=== PATIENT | female | born 1995 | race Caucasian/White ===

== ENCOUNTER → 2020-04-19 09:02 | Outpatient (CLI) | payer MEDICAID, SELFPAY ==
[2020-04-19 13:23] LABS: Basophils % 0.4 % (0.1-2.0); Eosinophils # 0.3 K/mm3 (0.0-0.4); Eosinophils % 3.2 % (0.1-12.0); Hematocrit 38.9 % (37.0-47.0); Hemoglobin 13.3 g/dL (12.2-16.2); Lymphocytes # 3.2 K/mm3 (0.7-4.5); Lymphocytes % 31.9 % (10-50); Mean Corpuscular HGB Conc 34.1 g/dL (31.8-35.4); Mean Platelet Volume 8.3 fl (7.4-10.4); Monocytes # 0.6 K/mm3 (0.1-1.0); Monocytes % 5.6 % (1.7-9.3); Neutrophils # 5.9 K/mm3 (1.8-7.8); Neutrophils % 58.8 % (37.0-80.0); Platelet Count 321 K/mm3 (142-424); Red Blood Count 4.42 M/mm3 (4.20-5.40); Red Cell Distribution Width 13.5 % (11.5-17.5)
[2020-04-20 11:05] LABS: HIV Screen 4th Generation wRfx Non Reactive (Non Reactive)
[2020-04-20 11:39] LABS: Hepatitis B Surface Antigen Negative (Negative); Hepatitis C Antibody 0.1 s/co ratio (0.0-0.9); Rapid Plasma Reagin Ab Titer Non Reactive (NonRea<1:1); Rubella Antibodies, IgG 2.87 index (Immune >0.99)
== END ==
PROVIDERS: Visit Provider Nurse Practitioner Obstetrics & Gynecology
DX: Z34.90 Encounter for supervision of normal pregnancy, unspecified, unspecified trimester (principal); Z3A.08 8 weeks gestation of pregnancy
CPT/HCPCS: 36415; 85025; 86592; 86703; 86762; 86850; 87340; 87380; G0432

== ENCOUNTER → 2020-04-22 12:52 | Outpatient (CLI) | payer MEDICAID, SELFPAY ==
--- NOTE | 2020-04-22 12:52 | US_ITS ---
PROCEDURE: US OB TRANSVAGINAL CLINICAL INDICATION: for dates Ob ultrasound for dates, early OB COMPARISON: No exams were available for comparison FINDINGS: There is an intrauterine gestational sac with a yolk sac noted. pole however is not identified with certainty. Cannot confirm viability at this. Suggest follow-up ultrasound. No adnexal mass. No cul-de-sac fluid. IMPRESSION: Intrauterine gestational sac apparent. No pole evident at this therefore cannot confirm viability. Follow-up is suggested. Dictated by: Jaron Borges MD 04/22/2020 16:29 Electronically signed by Jaron Borges MD in [place] 04/22/2020 16:29
== END ==
PROVIDERS: PCP Nurse Practitioner Obstetrics & Gynecology; Visit Provider Nurse Practitioner Obstetrics & Gynecology
DX: Z34.90 Encounter for supervision of normal pregnancy, unspecified, unspecified trimester (principal)
CPT/HCPCS: 76817

== ENCOUNTER → 2020-04-29 09:54 | Outpatient (CLI) | payer MEDICAID, SELFPAY ==
--- NOTE | 2020-04-29 10:16 | US_ITS ---
PROCEDURE: US OB TRANSVAGINAL CLINICAL INDICATION: dates for early COMPARISON: US OB TRANSVAGINAL from 04/22/2020 FINDINGS: An intrauterine gestational sac is present with a pole with a crown-rump length of 0.64cm correlating to gestational age of 6weeks 4days. heart tones are present with an FHR of 120bpm. Yolk sac is noted. IMPRESSION: Live intrauterine gestation at 6 weeks 4 days Estimated due date by Ultrasound is 12/19/2020 Dictated by: Jaron Borges MD 04/29/2020 18:36 Electronically signed by Jaron Borges MD in [place] 04/29/2020 18:36
== END ==
PROVIDERS: PCP Nurse Practitioner Obstetrics & Gynecology; Visit Provider Nurse Practitioner Obstetrics & Gynecology
DX: Z34.90 Encounter for supervision of normal pregnancy, unspecified, unspecified trimester (principal)
CPT/HCPCS: 76817

== ENCOUNTER → 2020-06-14 15:27 | Outpatient (CLI) | payer MEDICAID, SELFPAY ==
[2020-06-14 17:36] LABS: Coronavirus 19 IgG Antibody Negative (Negative); Coronavirus 19 IgM Antibody Negative (Negative)
== END ==
PROVIDERS: Visit Provider Nurse Practitioner Obstetrics & Gynecology
DX: Z01.84 Encounter for antibody response examination (principal)
CPT/HCPCS: 36415; 86328

== ENCOUNTER → 2020-08-01 13:02 | Outpatient (CLI) | payer MEDICAID, SELFPAY ==
--- NOTE | 2020-08-01 13:02 | US_ITS ---
PROCEDURE: US OB /MATERNAL DETAIL CLINICAL INDICATION: 20 week gestation anatomy scan---- COMPARISON: US US OB TRANSVAGINAL from 04/29/2020 FINDINGS: There is a single live fetus which is in cephalic presentation. heart and body motion noted. Placenta is anterior in implantation and grade 1. The cervix is closed and measures 3 cm in length. Complete survey performed and was unremarkable on the submitted images as in PACS. No discrete anomalies identified on survey imaging by technologist. Active fetus. Three-vessel cord with satisfactory umbilical cord insertion. 4- chamber heart noted. Survey of brain & ventricles Unremarkable. Face and neck survey unremarkable. Diaphragm and chest views unremarkable. Abdomen: Both kidneys noted and unremarkable. Stomach noted and satisfactory. Spine: Survey of the spine satisfactory with no anomalies identified nor imaged. Both arms and legs noted. Amniotic Fluid: Adequate. Maternal adnexa: No significant findings. Measurements: Average ultrasound age 20weeks 4days. Gestational Age 20 weeks Estimated due date by ultrasound age 0212/15/2020. Estimated weight 343g BPD = 21weeks 1day OFD = 21weeks HC = 20weeks 2days AC = 20weeks 4days FL = 20weeks Growth Percentile= 62Percent% Heart Rate = 138bpm Cerebellum = 20weeks 6days Humerus = 20weeks HC/AC is 1.15 CI is 0.8 FL/BPD is 0.64 FL/AC is 0.21 IMPRESSION: Live IUP with an average ultrasound age of 20 weeks and 4 days. All parameters correlate with no obvious anomalies. Please see above for detail. Dictated by: Jaron Borges MD 08/02/2020 11:21 Jaron Borges MD in [place] 08/02/2020 11:21
== END ==
PROVIDERS: PCP Nurse Practitioner Obstetrics & Gynecology; Visit Provider Nurse Practitioner Obstetrics & Gynecology
DX: Z3A.20 20 weeks gestation of pregnancy (principal); Z34.90 Encounter for supervision of normal pregnancy, unspecified, unspecified trimester
CPT/HCPCS: 76811

== ENCOUNTER 2020-08-19 08:57 | Emergency (ER) | payer MEDICAID, SELFPAY ==
[2020-08-19 09:23] VITALS: BP 136/89; PULSE 84; RESP 19; TEMP 36.6; O2SAT 97; BMI 45.4
--- NOTE | 2020-08-19 09:27 | HMH.EDUTC ---
[facility] [place] Clinical Impression: Viral syndrome Sinusitis Qualifiers: Sinusitis location: unspecified location Chronicity: acute Recurrence: non-recurrent Qualified Code(s): J01.90 - Acute sinusitis, unspecified Qualifiers: Weeks of gestation: 21 weeks Qualified Code(s): Z3A.21 - 21 weeks gestation of Disposition: Home, Self-Care Condition on Discharge: Good Instructions: Sinusitis, DI for Sinusitis Additional Instructions: Drink plenty of fluids. Take tylenol or ibuprofen for pain or fever. Take the medications as directed. Follow up with your regular doctor. Let your ob doctor know that you are sick. GO TO THE ER FOR ANY WORSENING SYMPTOMS Prescriptions: Azithromycin [Z-Tereso 250mg Tab*] 250 mg PO UD DOSE PK #6 tab Transmission Status: Received by [id number] Referrals: PCP,No [Primary Care Provider] - Forms: Work/School Release Time of Disposition: 09:46 Medical Decision Making - Medical Records Medical records reviewed: No: I reviewed the patient's medical records. - Javi Inquiry Pt receiving controlled substance: No Vital Signs: 08/19/20 09:23 08/19/20 10:07 Temperature 97.8 F 97.8 F Temperature Source Oral Oral Pulse Rate 84 Pulse Rate [Radial] 84 Respiratory Rate 19 19 Blood Pressure 136/89 Blood Pressure [Right Arm] 136/89 Blood Pressure Mean [Right Arm] 104 Blood Pressure Source Automatic Cuff Blood Pressure Source [Right Arm] Automatic Cuff Blood Pressure Position Sitting Blood Pressure Position [Right Arm] Sitting 02 Sat by Pulse Oximetry 97 Oxygen Delivery Method Room Air Room Air - Lab Data Lab results reviewed: Yes: I reviewed the patient's lab results. Lab Results 08/19/20 09:21: Influenza Type A Ag Negative, Influenza Type B Ag Negative Orders (Tests/Meds): ORDERS Category Date Time Status Covid-19 Nasal PCR ([facility]) Routine Lab 08/19/20 09:40 Ordered [facility] [place] H[place] - General Stated complaint: headache, fever, congested Time Seen by Provider: 08/19/20 09:27 Mode of Arrival: Ambulatory Source of Information: Patient Limitations: No Limitations Description of Symptoms (Recalled from Triage Doc. by RN): headache, runny nose, vomiting, coughing x 2 days HEENT Symptoms (Recalled from RN notes): Yes Resp Symptoms (Recalled from RN notes): No Skin Symptoms (Recalled from RN notes): No MS Symptoms (Recalled from RN notes): No Functional Status (Recalled from RN notes): wnl - History of Present Illness Provider Complaint: She states that for the past 2 days she has had a runny nose, sore throat, mild cough and head ache. - Related Data Previous Rx's Medication Instructions Recorded PNV 153-FA 400 mcg-om3 35 mg-dha 1 tab PO DAILY #30 tab 04/19/20 25 mg-epa 5 mg-fish oil chew tablet albuterol sulfate 90 mcg/actuation 2 puff INHALATION Q4-6H PRN #8.5 g 06/14/20 aerosol inhaler ferrous sulfate 325 mg (65 mg 325 mg PO DAILY #30 tab 08/10/20 iron) tablet Azithromycin [Z-Tereso 250mg Tab*] 250 mg PO UD DOSE PK #6 tab 08/19/20 Allergies Allergy/AdvReac Type Severity Reaction Status Date / Time Sulfa (Sulfonamide Allergy Severe Anaphylaxis Verified 08/10/20 13:58 Antibiotics) - Worker's Comp Is this a Worker's Comp case?: No [facility] History - Hepatitis A Screen Drug use history?: No High risk sexual behaviors?: No History of sexually transmitted infection?: No Currently employed?: No Childcare worker?: No Do you have indoor plumbing?: Yes Do you have electricity?: Yes Attestation statement:: This patient has been screened for Hepatitis A risk factors. I have reviewed the patient's past medical history: Yes Medical History: Reports:: Anxiety, Depression, MRSA, Palpitations Other Medical History: Reports: Other Comment: PTSD, mood disorder, reactive attachment disorder, Fibrocystic breast, Low immune system Other Surgeries: Yes: No Previous Surgery Amputation: No Fractures: No
[2020-08-19 10:07] VITALS: BP 136/89; PULSE 84; RESP 19; TEMP 36.6; O2SAT 97
[2020-08-19 10:26] LABS: UTC Influenza A Antigen Negative (Negative)
[2020-08-19 10:27] LABS: UTC Influenza B Antigen Negative (Negative)
== END 2020-08-19 10:08 | disposition home or self-care (01) ==
PROVIDERS: Emergency Provider Nurse Practitioner Family; Referring Provider Nurse Practitioner Obstetrics & Gynecology
DX: J01.90 Acute sinusitis, unspecified (principal); Z20.828 Contact with and (suspected) exposure to other viral communicable diseases; Z3A.21 21 weeks gestation of pregnancy
CPT/HCPCS: 87804; 99201; U0003

== ENCOUNTER → 2020-09-16 08:26 | Outpatient (CLI) | payer MEDICAID, SELFPAY ==
[2020-09-16 09:32] LABS: Glucose,Fasting 87 mg/dl (74-100)
[2020-09-16 10:25] LABS: Glucose 1 Hour 121 mg/dL (74-100)
== END ==
PROVIDERS: Visit Provider Nurse Practitioner Obstetrics & Gynecology
DX: Z34.90 Encounter for supervision of normal pregnancy, unspecified, unspecified trimester (principal)
CPT/HCPCS: 36415; 82951

== ENCOUNTER 2020-09-18 22:50 | Outpatient (CLI) | payer MEDICAID, SELFPAY ==
[2020-09-18 23:20] VITALS: BP 136/77; PULSE 80; RESP 20; TEMP 36.7; O2SAT 98; BMI 47.8
[2020-09-18 23:43] VITALS: BMI 47.8
[2020-09-18 23:58] LABS: Microscopic, Urine URINE MICROSCOPIC (MICROSCOPIC)
[2020-09-19 00:01] LABS: Appearance,Urine SL CLOUDY (Clear); Bilirubin,Urine Negative (Negative); Blood, Urine Negative (Negative); Color,Urine YELLOW (Yellow); Glucose,Urine (UA) Negative (Negative); Ketones,Urine Negative (Negative); Leukocyte Esterase,Urine Negative (Negative); Nitrate,Urine Negative (Negative); Protein,Urine Negative (Negative); Specific Gravity, Urine 1.025 (1.005-1.030); Urobilinogen,Urine 0.2 EU/dl (0.2)
[2020-09-19 00:12] LABS: Amphetamine/Metha Screen,Urine Negative ng/ml (<1000)
[2020-09-19 00:13] LABS: Barbiturates Screen,Urine Negative ng/ml (<200)
[2020-09-19 00:14] LABS: Benzodiazepines Screen,Urine Negative ng/ml (<200); Cannabinoid Screen,Urine Negative ng/ml (<50)
[2020-09-19 00:15] LABS: Cocaine Screen,Urine Negative ng/ml (<300)
[2020-09-19 00:16] LABS: Methadone Screen,Urine Negative ng/ml (<300); Opiate Screen,Urine Negative ng/ml (<300)
[2020-09-19 00:17] LABS: Phencyclidine Screen,Urine Negative ng/ml (<25)
[2020-09-19 00:28] LABS: Basophils # 0.1 K/mm3 (0-0.2); Basophils % 0.3 % (0.1-2.0); Eosinophils # 0.3 K/mm3 (0.0-0.4); Eosinophils % 1.9 % (0.1-12.0); Hematocrit 32.8 % (37.0-47.0); Hemoglobin 10.7 g/dL (12.2-16.2); Lymphocytes # 3.9 K/mm3 (0.7-4.5); Lymphocytes % 22.2 % (10-50); Mean Corpuscular HGB Conc 32.6 g/dL (31.8-35.4); Mean Corpuscular Volume 88.9 fl (81-99); Mean Platelet Volume 8.4 fl (7.4-10.4); Monocytes # 0.9 K/mm3 (0.1-1.0); Monocytes % 4.8 % (1.7-9.3); Neutrophils # 12.6 K/mm3 (1.8-7.8); Neutrophils % 70.8 % (37.0-80.0); Platelet Count 371 K/mm3 (142-424); Red Blood Count 3.69 M/mm3 (4.20-5.40); Red Cell Distribution Width 13.7 % (11.5-17.5); White Blood Count 17.8 K/mm3 (4.8-10.8)
[2020-09-19 00:31] LABS: Chloride 106 mmol/L (98-107); Sodium 136 mmol/L (136-145)
[2020-09-19 00:32] LABS: MANUAL DIFFERENTIAL MANUAL DIFFERENTIAL (MANUAL DIFF)
[2020-09-19 00:34] LABS: Alanine Aminotransferase 16 U/L (12-78); Albumin Level 3.3 g/dl (3.5-5.0); Albumin/Globulin Ratio 1.1 (1.1-1.8); Alkaline Phosphatase 103 U/L (38-126); Aspartate Amino Transferase 21 U/L (14-36); Bilirubin,Total 0.3 mg/dl (0.2-1.3); Blood Urea Nitrogen 4 mg/dl (7-17); Calcium 9.1 mg/dl (8.4-10.2); Carbon Dioxide 25 mmol/L (22.0-30.0); Creatinine Clearance Estimated 119 mL/min (50-200); Estimated Glomerular Filt Rate 153 ml/min (>60); GFR (African American) 185 ML/MIN (>60); Globulin 2.9 g/dL (1.3-3.2); Glucose 109 mg/dl (74-100); Total Protein,Serum 6.2 g/dl (6.3-8.2)
[2020-09-19 00:48] LABS: Eosinophils % 2 % (0-3); Lymphocytes % 15 % (10-50); Neutrophils % 79 % (42-76); Platelet Estimate Normal; RBC Morphology Normal; Total Cells Counted 100
== END 2020-09-19 01:10 | disposition home or self-care (01) ==
LOC: OBOUT 22:53 → OB 22:53
PROVIDERS: PCP Nurse Practitioner Obstetrics & Gynecology; Visit Provider Obstetrics & Gynecology
DX: O47.03 False labor before 37 completed weeks of gestation, third trimester (principal); Z3A.36 36 weeks gestation of pregnancy
CPT/HCPCS: 59025; 80053; 80305; 81001; 85007; 85025; 96360; 96365; G0463

== ENCOUNTER → 2020-09-28 17:05 | Outpatient (CLI) | payer MEDICAID, SELFPAY ==
[2020-09-28 17:08] LABS: Microscopic, Urine URINE MICROSCOPIC (MICROSCOPIC)
[2020-09-28 18:30] LABS: Appearance,Urine CLOUDY (Clear); Bilirubin,Urine Negative (Negative); Blood, Urine Negative (Negative); Color,Urine YELLOW (Yellow); Glucose,Urine (UA) Negative (Negative); Ketones,Urine Negative (Negative); Leukocyte Esterase,Urine Negative (Negative); Nitrate,Urine Negative (Negative); Protein,Urine Negative (Negative); Urobilinogen,Urine 0.2 EU/dl (0.2)
[2020-09-28 20:22] LABS: Bacteria,Urine 1+ /lpf
== END ==
PROVIDERS: Visit Provider Nurse Practitioner Obstetrics & Gynecology
DX: Z34.90 Encounter for supervision of normal pregnancy, unspecified, unspecified trimester (principal); Z3A.28 28 weeks gestation of pregnancy
CPT/HCPCS: 81001

== ENCOUNTER → 2020-11-09 14:57 | Outpatient (CLI) | payer MEDICAID, SELFPAY ==
[2020-11-09 15:51] LABS: Basophils % 0.2 % (0.1-2.0); Eosinophils # 0.3 K/mm3 (0.0-0.4); Eosinophils % 1.7 % (0.1-12.0); Hemoglobin 10.3 g/dL (12.2-16.2); Lymphocytes # 3.6 K/mm3 (0.7-4.5); Lymphocytes % 20.2 % (10-50); Mean Corpuscular HGB Conc 33.1 g/dL (31.8-35.4); Mean Corpuscular Hemoglobin 27.1 pg (27.0-31.2); Mean Corpuscular Volume 81.9 fl (81-99); Mean Platelet Volume 8.5 fl (7.4-10.4); Monocytes # 0.8 K/mm3 (0.1-1.0); Monocytes % 4.6 % (1.7-9.3); Neutrophils % 73.2 % (37.0-80.0); Platelet Count 434 K/mm3 (142-424); Red Blood Count 3.79 M/mm3 (4.20-5.40); Red Cell Distribution Width 13.3 % (11.5-17.5); White Blood Count 17.8 K/mm3 (4.8-10.8)
[2020-11-09 15:53] LABS: MANUAL DIFFERENTIAL MANUAL DIFFERENTIAL (MANUAL DIFF)
[2020-11-09 16:21] LABS: D-Dimer 0.94 ug/mL (0.0-0.5)
[2020-11-09 16:35] LABS: Activated Partial Thrombo Time 24.5 seconds (23.6-34.0); INR 1.09 (0.9-1.1)
[2020-11-09 16:46] LABS: Hypochromasia 1+; Lymphocytes % 18 % (10-50); Monocytes % 3 % (2-9); Neutrophils % 79 % (42-76); Platelet Estimate Normal; RBC Morphology Normal; Total Cells Counted 100
[2020-11-09 16:49] LABS: Fibrinogen 632 mg/dL (204-500)
[2020-11-09 16:57] LABS: Chloride 103 mmol/L (98-107); Glucose 89 mg/dl (74-100); Sodium 136 mmol/L (136-145); Uric Acid 4.4 mg/dl (2.5-6.2)
[2020-11-09 16:58] LABS: Alanine Aminotransferase 11 U/L (12-78); Aspartate Amino Transferase 21 U/L (14-36); Blood Urea Nitrogen < 2 mg/dl (7-17); Calcium 8.8 mg/dl (8.4-10.2); Carbon Dioxide 25 mmol/L (22.0-30.0); Estimated Glomerular Filt Rate 198 ml/min (>60); GFR (African American) 239 ML/MIN (>60)
== END ==
PROVIDERS: Visit Provider Nurse Practitioner Obstetrics & Gynecology
DX: Z34.90 Encounter for supervision of normal pregnancy, unspecified, unspecified trimester (principal); Z3A.34 34 weeks gestation of pregnancy
CPT/HCPCS: 36415; 80048; 84450; 84460; 84550; 85007; 85025; 85378; 85384; 85610; 85730

== ENCOUNTER → 2020-11-11 16:52 | Outpatient (CLI) | payer MEDICAID, SELFPAY ==
[2020-11-11 18:18] LABS: Collection Time,Urine 24 hours; Total Volume,Urine 1520 mL (600-1600)
[2020-11-11 18:29] LABS: Total Protein 24 Hour,Urine 289 mg/24 hr (40-90)
[2020-11-11 18:32] LABS: Creatinine 24 Hour,Urine 1018 mg/24hr (630-2500); Creatinine,Urine Random 67 mg/dL (Not Estab.)
[2020-11-11 20:03] LABS: Creatinine Clearance Urine 124.1 mL/min (25-115); Patient Height,Urine 59 inches; Patient Weight,Urine 236 lbs
== END ==
PROVIDERS: Visit Provider Nurse Practitioner Obstetrics & Gynecology
DX: Z34.90 Encounter for supervision of normal pregnancy, unspecified, unspecified trimester (principal); Z3A.34 34 weeks gestation of pregnancy
CPT/HCPCS: 36415; 82575; 84155

== ENCOUNTER 2020-11-12 00:21 | Observation (INO) | payer MEDICAID, SELFPAY ==
[2020-11-11 22:54] VITALS: BP 144/89; PULSE 95; RESP 18; TEMP 36.8; O2SAT 98; BMI 47.6
[2020-11-11 22:59] LABS: Microscopic, Urine URINE MICROSCOPIC (MICROSCOPIC)
[2020-11-11 23:13] LABS: Amphetamine/Metha Screen,Urine Negative ng/ml (<1000)
[2020-11-11 23:14] LABS: Barbiturates Screen,Urine Negative ng/ml (<200); Benzodiazepines Screen,Urine Negative ng/ml (<200)
[2020-11-11 23:15] VITALS: BP 156/96
[2020-11-11 23:15] LABS: Cannabinoid Screen,Urine Negative ng/ml (<50)
[2020-11-11 23:16] LABS: Cocaine Screen,Urine Negative ng/ml (<300); Methadone Screen,Urine Negative ng/ml (<300)
[2020-11-11 23:17] LABS: Opiate Screen,Urine Negative ng/ml (<300); Phencyclidine Screen,Urine Negative ng/ml (<25)
[2020-11-11 23:18] LABS: Appearance,Urine SL CLOUDY (Clear); Blood, Urine Negative (Negative); Color,Urine YELLOW (Yellow); Glucose,Urine (UA) Negative (Negative); Ketones,Urine Negative (Negative); Leukocyte Esterase,Urine TRACE (Negative); Nitrate,Urine Negative (Negative); Protein,Urine TRACE (Negative); Specific Gravity, Urine 1.015 (1.005-1.030); Urobilinogen,Urine 0.2 EU/dl (0.2)
[2020-11-11 23:25] LABS: Bilirubin,Urine 1+ (Negative)
[2020-11-11 23:26] LABS: Amorphous Sediment,Urine Trace /lpf; Mucus,Urine Trace /lpf; Squamous Epithelial Cell,Urine 20-50 #/hpf (0-5)
[2020-11-11 23:39] VITALS: BP 148/91
[2020-11-12] VITALS: BP 138/95
[2020-11-12 00:15] VITALS: BP 134/74
[2020-11-12 01:23] LABS: Basophils % 0.2 % (0.1-2.0); Eosinophils # 0.3 K/mm3 (0.0-0.4); Eosinophils % 1.7 % (0.1-12.0); Hematocrit 30.4 % (37.0-47.0); Lymphocytes # 3.7 K/mm3 (0.7-4.5); Lymphocytes % 23.2 % (10-50); Mean Corpuscular HGB Conc 32.9 g/dL (31.8-35.4); Mean Corpuscular Hemoglobin 26.7 pg (27.0-31.2); Mean Corpuscular Volume 81.2 fl (81-99); Mean Platelet Volume 8.6 fl (7.4-10.4); Monocytes # 0.7 K/mm3 (0.1-1.0); Monocytes % 4.4 % (1.7-9.3); Neutrophils # 11.3 K/mm3 (1.8-7.8); Neutrophils % 70.5 % (37.0-80.0); Platelet Count 476 K/mm3 (142-424); Red Blood Count 3.75 M/mm3 (4.20-5.40); Red Cell Distribution Width 13.5 % (11.5-17.5)
[2020-11-12 01:29] LABS: MANUAL DIFFERENTIAL MANUAL DIFFERENTIAL (MANUAL DIFF)
[2020-11-12 01:40] LABS: Activated Partial Thrombo Time 25.4 seconds (23.6-34.0); Fibrinogen 418 mg/dL (204-500); INR 1.08 (0.9-1.1); Prothrombin Time 11.9 seconds (9.4-11.8)
[2020-11-12 01:43] LABS: Anion Gap 8.7 mEq/L (5-15); Blood Urea Nitrogen 2 mg/dl (7-17); Carbon Dioxide 27 mmol/L (22.0-30.0); Chloride 104 mmol/L (98-107); Potassium 2.7 mmoL/L (3.5-5.1); Sodium 137 mmol/L (136-145)
[2020-11-12 01:44] LABS: Alanine Aminotransferase 12 U/L (12-78); Aspartate Amino Transferase 20 U/L (14-36); Calcium 9.1 mg/dl (8.4-10.2); Creatinine Clearance Estimated 119 mL/min (50-200); Estimated Glomerular Filt Rate 153 ml/min (>60); GFR (African American) 185 ML/MIN (>60); Glucose 117 mg/dl (74-100)
[2020-11-12 01:47] LABS: Coronavirus 19 IgG Antibody Negative (Negative); Coronavirus 19 IgM Antibody Negative (Negative)
[2020-11-12 01:50] LABS: Lymphocytes % 22 % (10-50); Neutrophils % 72 % (42-76); Total Cells Counted 100
[2020-11-12 01:51] LABS: Platelet Estimate Normal; RBC Morphology Normal
[2020-11-12 01:59] LABS: D-Dimer 0.84 ug/mL (0.0-0.5)
[2020-11-12 03:57] VITALS: BP 127/95; PULSE 84; RESP 18; TEMP 36.6; O2SAT 98
--- NOTE | 2020-11-12 08:52 | HMH.OBAPHP ---
OB - H&P: HPI Antepartum - History of Present Illness Chief complaint: Headache, increased blood pressure History of present illness: She is a 25-year-old 1 para 0 at 34 weeks gestational age. She was seen in my office a few days ago with slightly increased blood pressure. We did a 24-hour urine which showed 285 mg of protein in her urine. All of her blood work was normal. She was at home and had a slight headache and came into labor and delivery. Her blood pressure was in the 140s over 90s range. Blood work was all normal except that she was hypokalemic. Her potassium was low. She does admit to having had some diarrhea recently. - History of Present Criteria for establishing EDC:: LMP confirmed by 1st trimester US care: good care Ultrasounds: normal 1st trimester US, normal mid trimester US Obstetrical complications: gestational hypertension Medical complications: none H History I have reviewed the patient's past medical history: Yes Medical History: Reports:: Anxiety, Depression, MRSA, Palpitations *Have you ever received a pneumonia vaccine?: No *Have you received a flu vaccine this season?: No Other Medical History: Reports: Other Other Surgeries: Yes: No Previous Surgery. No: Amputation: No Fractures: No - *Social History Smoking Status: Current every day smoker Tobacco Type: cigarettes # Packs/Day (cigarettes): 1 Alcohol Intake: never Alcohol Intake Frequency:: other Substance Use Type: marijuana *Occupational Status:: employed *Travel in the last 8 weeks: None - Psychiatric History Pschychiatric History:: Reports:: Anxiety, Depression Family Hx:: No significant family history [employer] history: Spontaneous Para: 0 Review of Systems - Review of Systems Review of systems:: pertinent systems reviewed and negative unless documented below Meds Home Medications Medication Instructions Recorded Confirmed Type albuterol sulfate 90 mcg/actuation 2 puff INHALATION Q4-6H PRN #8.5 g 06/14/20 11/12/20 Rx aerosol inhaler Famotidine [Acid Education Research Analyst] 20 mg PO DAILY 11/12/20 11/12/20 History Pnv No.153/FA/Om3/Dha/Epa/Fish 1 tab PO DAILY 11/12/20 11/12/20 History [ Gummies] Allergies Allergy/AdvReac Type Severity Reaction Status Date / Time Sulfa (Sulfonamide Allergy Severe Anaphylaxis Verified 11/09/20 14:15 Antibiotics) OB - H&P: Exam - Physical Exam Vital signs: Temp Pulse Resp BP Pulse Ox 97.9 F 84 18 127/95 H 98 11/12/20 03:57 11/12/20 03:57 11/12/20 03:57 11/12/20 03:57 11/12/20 03:57 - Constitutional no acute distress - Routine HEENT Exam Head: Present: normocephalic Eye: Present: EOMI, PERRL ENT: Present: mucous membranes moist - Routine Neck Exam Present: supple, full ROM - Routine Respiratory Exam Absent: accessory muscle use (good air entry bilaterally), respiratory distress, wheezes, crackles - Routine Cardiovascular Exam Present: RRR. Absent: murmur - Routine Abdominal Exam Present: soft, normoactive bowel sounds. Absent: tenderness, distended, guarding - Routine Rectal Exam Patient deferred: visual exam, digital exam - Routine Exam Patient deferred: external exam, groin exam, perineal exam - Routine Extremities Exam Present: full ROM. Absent: cyanosis, edema - Routine Skin Exam Present: intact. Absent: cyanosis - Routine Neurological Exam Present: alert, oriented X3 - Routine Psychiatric Exam Present: normal affect OB - Results - Labs Labs: Short CBC 11/12/20 Range/Units 00:55 WBC 16.0 H (4.8-10.8) K/mm3 Hgb 10.0 L (12.2-16.2) g/dL Hct 30.4 L (37.0-47.0) % Plt Count 476 H (142-424) K/mm3 BMP 11/12/20 00:55 Sodium 137 Potassium 2.7 L* Chloride 104 Carbon Dioxide 27 BUN 2 L Creatinine 0.50 L Glucose 117 H Calcium 9.1 Liver Function 11/12/20 Range/Units 00:55 AST 20 (14-36) U/L ALT 12 (12-78) U/L
--- NOTE | 2020-11-12 08:54 | HMH.OBDCSM ---
General - General Admission date:: 11/12/20 Discharge date: 11/12/20 HPI - History of Present Illness History of present illness: She is a 25-year-old 1 now para 0 at 34 weeks gestational age. She came in with headache and slightly increased blood pressure. Her blood pressure is in the 140s over 90s. She also had hypokalemia when we checked her blood work. Hospital Course Hospital Course: She was started on oral labetalol 200 mg twice daily and her blood pressure has normalized. Her headache has resolved. Her blood pressure this morning is 129/66. Reflexes are normal. All of her blood work was normal. She was hypokalemic and did receive IV as well as oral potassium overnight. She will be discharged home since she has stabilized and follow-up with me in approximately 48 hours time. She will receive steroids this morning for lung maturity and will return again tomorrow for a repeat dose. She will also have her blood pressure checked again tomorrow as well as an NST. She will continue with oral potassium replacement. She was given the usual instructions with respect to limiting her activity. She will remain mostly on bedrest. She will monitor her blood pressure at home. She will continue with her labetalol at home. She was given the signs of increasing blood pressure which for her is mild headache. Her condition on discharge is stable and improved. Objective Vital signs: Temp Pulse Resp BP Pulse Ox 97.9 F 84 18 127/95 H 98 11/12/20 03:57 11/12/20 03:57 11/12/20 03:57 11/12/20 03:57 11/12/20 03:57 no acute distress - *Routine HEENT Exam Head: Present: normocephalic Eye: Present: EOMI, PERRL ENT: Present: mucous membranes moist - *Routine Neurological Exam Present: alert, oriented X3, normal speech Reflexes are normal Results Labs on day of discharge: Labs from last 24 hours 11/12/20 11/12/20 11/12/20 00:55 00:55 00:55 WBC RBC Hgb Hct MCV MCH MCHC RDW Plt Count MPV Neut % (Auto) Lymph % (Auto) [place] % (Auto) Eos % (Auto) Baso % (Auto) Neut # (Auto) Lymph # (Auto) [place] # (Auto) Eos # (Auto) Baso # (Auto) Total Counted Neutrophils % (Manual) Band Neutrophils % Lymphocytes % (Manual) Platelet Estimate RBC Morphology PT 11.9 H INR 1.08 APTT 25.4 Fibrinogen 418 D-Dimer 0.84 H Sodium 137 Potassium 2.7 L* Chloride 104 Carbon Dioxide 27 Anion Gap 8.7 BUN 2 L Creatinine 0.50 L Estimated Creat Clear 119 Estimated GFR 153 Est GFR ( Amer) 185 D Glucose 117 H Uric Acid 5.0 Calcium 9.1 AST 20 ALT 12 Urine Color Urine Appearance Urine pH Ur Specific [place] Urine Protein Urine Glucose (UA) Urine Ketones Urine Blood Urine Nitrate Urine Bilirubin Urine Urobilinogen Ur Leukocyte Esterase Urine WBC Ur Squamous Epith Cells Amorphous Sediment Urine Mucus Urine Opiates Screen Urine Methadone Screen Ur Barbituates Screen Ur Phencyclidine Scrn Ur Amphetamines Screen U Benzodiazepines Scrn Urine Cocaine Screen U Marijuana (THC) Screen SARS-CoV-2 IgG Ab (Rapid) Negative SARS-CoV-2 IgM Ab (Rapid) Negative 11/12/20 11/11/20 11/11/20 00:55 22:46 22:46 WBC 16.0 H RBC 3.75 L Hgb 10.0 L Hct 30.4 L MCV 81.2 MCH 26.7 L MCHC 32.9 RDW 13.5 Plt Count 476 H MPV 8.6 Neut % (Auto) 70.5 Lymph % (Auto) 23.2 [place] % (Auto) 4.4 Eos % (Auto) 1.7 Baso % (Auto) 0.2 Neut # (Auto) 11.3 H Lymph # (Auto) 3.7 [place] # (Auto) 0.7 Eos # (Auto) 0.3 Baso # (Auto) 0.0 Total Counted 100 Neutrophils % (Manual) 72 Band Neutrophils % 6.0 Lymphocytes % (Manual) 22 Platelet Estimate Normal RBC Morphology Normal PT INR APTT Fibrinogen D-Dimer Sodium P
[2020-11-12 11:01] LABS: Potassium 2.9 mmoL/L (3.5-5.1)
== END 2020-11-12 12:02 | disposition home or self-care (01) ==
LOC: OBOUT 00:23 → OB 00:23
PROVIDERS: Admitting Provider Nurse Practitioner Obstetrics & Gynecology; Visit Provider Nurse Practitioner Obstetrics & Gynecology
DX: O14.93 Unspecified pre-eclampsia, third trimester (principal); Z3A.34 34 weeks gestation of pregnancy; E87.6 Hypokalemia; G44.89 Other headache syndrome; O13.3 Gestational [pregnancy-induced] hypertension without significant proteinuria, third trimester
CPT/HCPCS: 59025; 80048; 80305; 81001; 84132; 84450; 84460; 84550; 85007; 85025; 85378; 85384; 85610; 85730; 86328; 96372; G0378; J2405

== ENCOUNTER 2020-11-13 12:03 | Outpatient (CLI) | payer MEDICAID, SELFPAY ==
[2020-11-13 12:19] VITALS: BP 128/80; PULSE 98; RESP 16; TEMP 36.7; O2SAT 95; BMI 47.5
[2020-11-13 12:30] VITALS: BP 111/58
[2020-11-13 12:45] VITALS: BP 115/61
== END 2020-11-13 13:03 | disposition home or self-care (01) ==
LOC: OBOUT 12:04 → OB 12:04
PROVIDERS: Visit Provider Nurse Practitioner Obstetrics & Gynecology
DX: O13.3 Gestational [pregnancy-induced] hypertension without significant proteinuria, third trimester (principal); Z3A.34 34 weeks gestation of pregnancy
CPT/HCPCS: 59025; 96372; G0463

== ENCOUNTER 2020-11-13 23:08 | Observation (INO) | payer MEDICAID, SELFPAY ==
[2020-11-13 21:59] VITALS: BMI 47.6
[2020-11-13 22:34] VITALS: BP 141/91; PULSE 100; RESP 20; TEMP 36.6; O2SAT 97; BMI 47.6
[2020-11-13 22:36] LABS: Microscopic, Urine URINE MICROSCOPIC (MICROSCOPIC)
[2020-11-13 22:37] LABS: Appearance,Urine CLEAR (Clear); Bilirubin,Urine Negative (Negative); Blood, Urine Negative (Negative); Color,Urine YELLOW (Yellow); Glucose,Urine (UA) Negative (Negative); Ketones,Urine Negative (Negative); Leukocyte Esterase,Urine Negative (Negative); Nitrate,Urine Negative (Negative); PH,Urine 7.5 (5.0-8.5); Protein,Urine Negative (Negative); Urobilinogen,Urine 0.2 EU/dl (0.2)
[2020-11-13 22:41] LABS: Amorphous Sediment,Urine Trace /lpf
[2020-11-13 22:51] LABS: Barbiturates Screen,Urine Negative ng/ml (<200); Benzodiazepines Screen,Urine Negative ng/ml (<200)
[2020-11-13 22:52] LABS: Amphetamine/Metha Screen,Urine Negative ng/ml (<1000)
[2020-11-13 22:53] LABS: Cannabinoid Screen,Urine Negative ng/ml (<50); Cocaine Screen,Urine Negative ng/ml (<300)
[2020-11-13 22:54] LABS: Methadone Screen,Urine Negative ng/ml (<300)
[2020-11-13 22:55] LABS: Opiate Screen,Urine Negative ng/ml (<300); Phencyclidine Screen,Urine Negative ng/ml (<25)
[2020-11-14 00:16] LABS: Magnesium 1.5 mg/dl (1.6-2.3)
[2020-11-14 03:51] VITALS: BP 133/73; PULSE 91; RESP 18; TEMP 36.6; O2SAT 99
[2020-11-14 04:21] LABS: Fetal Membrane Rupture (Rapid) Negative (Negative)
[2020-11-14 07:20] LABS: Basophils % 0.1 % (0.1-2.0); Eosinophils % 0.1 % (0.1-12.0); Hematocrit 28.7 % (37.0-47.0); Hemoglobin 9.5 g/dL (12.2-16.2); Lymphocytes # 2.7 K/mm3 (0.7-4.5); Lymphocytes % 14.5 % (10-50); Mean Corpuscular HGB Conc 33.3 g/dL (31.8-35.4); Mean Corpuscular Hemoglobin 27.3 pg (27.0-31.2); Mean Corpuscular Volume 82.1 fl (81-99); Mean Platelet Volume 8.5 fl (7.4-10.4); Monocytes # 0.9 K/mm3 (0.1-1.0); Monocytes % 4.8 % (1.7-9.3); Neutrophils % 80.5 % (37.0-80.0); Platelet Count 441 K/mm3 (142-424); Red Blood Count 3.49 M/mm3 (4.20-5.40); Red Cell Distribution Width 13.5 % (11.5-17.5); White Blood Count 18.7 K/mm3 (4.8-10.8)
[2020-11-14 07:27] LABS: D-Dimer 1.04 ug/mL (0.0-0.5)
[2020-11-14 07:50] LABS: MANUAL DIFFERENTIAL MANUAL DIFFERENTIAL (MANUAL DIFF)
--- NOTE | 2020-11-14 07:51 | HMH.OBAPHP ---
OB - H&P: HPI Antepartum - History of Present Illness Chief complaint: -induced hypertension History of present illness: She is a 25-year-old 1 para 0 at 35 weeks gestational age. She has been seen over the last week with slightly increased blood pressure. She was admitted last week with blood pressure and started on labetalol 200 mg twice daily. She received steroids for lung maturity over the weekend as well. She was admitted last night with increased blood pressure and mild headache. Her blood pressures in the 140s over 90s range. This is despite the fact that she had been taking her labetalol 200 mg twice daily. She is now on magnesium sulfate at 2 g an hour. She received a 4 g bolus. My plan is to transfer her to [facility] this morning since she is a little too early for our hospital to deliver. - History of Present Criteria for establishing EDC:: LMP confirmed by 1st trimester US care: good care Ultrasounds: normal 1st trimester US, normal mid trimester US Obstetrical complications: gestational hypertension [facility] History I have reviewed the patient's past medical history: Yes Medical History: Reports:: Anxiety, Depression, MRSA, Palpitations *Have you ever received a pneumonia vaccine?: No *Have you received a flu vaccine this season?: No Other Medical History: Reports: Other Other Surgeries: Yes: No Previous Surgery. 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 Para: 1 Review of Systems - Review of Systems Review of systems:: pertinent systems reviewed and negative unless documented below Meds Home Medications Medication Instructions Recorded Confirmed Type albuterol sulfate 90 mcg/actuation 2 puff INHALATION Q4-6H PRN #8.5 g 06/14/20 11/13/20 Rx aerosol inhaler Pnv No.153/FA/Om3/Dha/Epa/Fish 1 tab PO DAILY 11/12/20 11/13/20 History [[facility] Gummies] Famotidine [Pepcid 20mg Tablet] 20 mg PO BID 11/13/20 11/13/20 History Labetalol HCl [Normodyne 100mg 200 mg PO Q12 11/13/20 11/13/20 History tablet] Potassium Chloride [Klor-con 20 20 meq PO BID 11/13/20 11/13/20 History mEq tablet] Allergies Allergy/AdvReac Type Severity Reaction Status Date / Time Sulfa (Sulfonamide Allergy Severe Anaphylaxis Verified 11/09/20 14:15 Antibiotics) OB - H&P: Exam - Physical Exam Vital signs: Temp Pulse Resp BP Pulse Ox 97.8 F 91 H 18 133/73 99 11/14/20 03:51 11/14/20 03:51 11/14/20 03:51 11/14/20 03:51 11/14/20 03:51 - Constitutional no acute distress - Routine HEENT Exam Head: Present: normocephalic Eye: Present: EOMI, PERRL ENT: Present: mucous membranes moist - Routine Neck Exam Present: supple, full ROM - Routine Respiratory Exam Absent: accessory muscle use (good air entry bilaterally), respiratory distress, wheezes, crackles - Routine Cardiovascular Exam Present: RRR. Absent: murmur - Routine Abdominal Exam Present: soft, normoactive bowel sounds. Absent: tenderness, distended, guarding - Routine Rectal Exam Patient deferred: visual exam, digital exam - Routine Exam Patient deferred: external exam, groin exam, perineal exam - Routine Extremities Exam Present: full ROM. Absent: cyanosis, edema - Routine Skin Exam Present: intact. Absent: cyanosis - Routine Neurological Exam Present: alert, oriented X3 - Routine Psychiatric Exam Present: normal affect OB - Results - Labs Labs: Short CBC 11/14/20 Range/Units 06:25 WBC 18.7 H
--- NOTE | 2020-11-14 08:17 | HMH.OBDCSM ---
General - General Admission date:: 11/13/20 Discharge date: 11/14/20 HPI - History of Present Illness History of present illness: She is a 25-year-old one para zero at 35 weeks with increased blood pressure. Hospital Course Hospital Course: She was started on magnesium sulfate when she was admitted. She received a 4 g bolus and 2 g an hour overnight. She received steroids over the weekend and her last dose was yesterday morning. We initially had seen her last week and started her on labetalol 200 mg twice daily and she did stabilize with bedrest at this dosage. She subsequently returned with increased blood pressure. Her group B strep status is unknown. Initially her blood pressures were than 140s over 90s. They're now in the 120s over 60s. I spoke to Dr. Brumfield at [facility] and we will send her by ambulance to [facility]. We will disconnect her magnesium sulfate for the ride down but will give her a 2 g bolus before she leaves. Objective Vital signs: Temp Pulse Resp BP Pulse Ox 97.8 F 91 H 18 133/73 99 11/14/20 03:51 11/14/20 03:51 11/14/20 03:51 11/14/20 03:51 11/14/20 03:51 no acute distress - *Routine HEENT Exam Head: Present: normocephalic Eye: Present: EOMI, PERRL ENT: Present: mucous membranes moist Results Labs on day of discharge: Labs from last 24 hours 11/14/20 11/14/20 11/14/20 06:25 06:25 03:44 WBC 18.7 H RBC 3.49 L Hgb 9.5 L Hct 28.7 L MCV 82.1 MCH 27.3 MCHC 33.3 RDW 13.5 Plt Count 441 H MPV 8.5 Neut % (Auto) 80.5 H Lymph % (Auto) 14.5 [place] % (Auto) 4.8 Eos % (Auto) 0.1 Baso % (Auto) 0.1 Neut # (Auto) 15.0 H Lymph # (Auto) 2.7 [place] # (Auto) 0.9 Eos # (Auto) 0.0 Baso # (Auto) 0.0 D-Dimer 1.04 H Magnesium Urine Color Urine Appearance Urine pH Ur Specific [place] Urine Protein Urine Glucose (UA) Urine Ketones Urine Blood Urine Nitrate Urine Bilirubin Urine Urobilinogen Ur Leukocyte Esterase Urine WBC Ur Squamous Epith Cells Amorphous Sediment Membrane Rupture Negative Urine Opiates Screen Urine Methadone Screen Ur Barbituates Screen Ur Phencyclidine Scrn Ur Amphetamines Screen U Benzodiazepines Scrn Urine Cocaine Screen U Marijuana (THC) Screen 11/13/20 11/13/20 11/13/20 23:58 22:20 22:00 WBC RBC Hgb Hct MCV MCH MCHC RDW Plt Count MPV Neut % (Auto) Lymph % (Auto) [place] % (Auto) Eos % (Auto) Baso % (Auto) Neut # (Auto) Lymph # (Auto) [place] # (Auto) Eos # (Auto) Baso # (Auto) D-Dimer Magnesium 1.5 L Urine Color Yellow Urine Appearance Clear Urine pH 7.5 Ur Specific [place] 1.010 Urine Protein Negative Urine Glucose (UA) Negative Urine Ketones Negative Urine Blood Negative Urine Nitrate Negative Urine Bilirubin Negative Urine Urobilinogen 0.2 Ur Leukocyte Esterase Negative Urine WBC 5-10 Ur Squamous Epith Cells 5-10 Amorphous Sediment Trace Membrane Rupture Urine Opiates Screen Negative Urine Methadone Screen Negative Ur Barbituates Screen Negative Ur Phencyclidine Scrn Negative Ur Amphetamines Screen Negative U Benzodiazepines Scrn Negative Urine Cocaine Screen Negative U Marijuana (THC) Screen Negative DS: Diagnosis - Discharge Diagnosis (1) Obesity affecting Status: Acute (2) Preeclampsia Status: Acute Discharge Plan - Patient Discharge Instructions ACTIVITY: Bed rest DIET: continue same diet - Follow up Plan Disposition: Xfer Other Home Medications: Home Medications Medication Instructions Recorded Confirmed Type albuterol sulfate 90 mcg/actuation 2 puff INHALATION Q4-6H PRN #8.5 g 06/14/20 11/13/20 Rx aerosol inhaler Pnv No.153/FA/Om3/
[2020-11-14 08:42] LABS: Lymphocytes % 11 % (10-50); Monocytes % 7 % (2-9); Neutrophils % 82 % (42-76); Platelet Estimate Slight Increase; RBC Morphology Normal; Total Cells Counted 100
[2020-11-14 09:20] LABS: Activated Partial Thrombo Time 21.7 seconds (23.6-34.0); Fibrinogen 464 mg/dL (204-500); INR 1.01 (0.9-1.1); Prothrombin Time 11.2 seconds (9.4-11.8)
[2020-11-14 11:38] LABS: Chloride 102 mmol/L (98-107); Sodium 135 mmol/L (136-145)
[2020-11-14 11:41] LABS: Alanine Aminotransferase 12 U/L (12-78); Anion Gap 10.7 mEq/L (5-15); Aspartate Amino Transferase 22 U/L (14-36); Blood Urea Nitrogen 2 mg/dl (7-17); Carbon Dioxide 25 mmol/L (22.0-30.0); Creatinine Clearance Estimated 149 mL/min (50-200); Estimated Glomerular Filt Rate 198 ml/min (>60); GFR (African American) 239 ML/MIN (>60)
[2020-11-14 11:42] LABS: Calcium 8.6 mg/dl (8.4-10.2); Glucose 103 mg/dl (74-100); Magnesium 4.4 mg/dl (1.6-2.3)
[2020-11-14 11:43] LABS: Potassium 2.7 mmoL/L (3.5-5.1)
[2020-11-14 11:59] LABS: Uric Acid 5.1 mg/dl (2.5-6.2)
== END 2020-11-14 10:03 | disposition short-term general hospital (02) ==
LOC: OBOUT 23:10 → OB 23:10
PROVIDERS: Admitting Provider Nurse Practitioner Obstetrics & Gynecology; PCP Nurse Practitioner Obstetrics & Gynecology; Visit Provider Nurse Practitioner Obstetrics & Gynecology
DX: O13.3 Gestational [pregnancy-induced] hypertension without significant proteinuria, third trimester (principal); O14.93 Unspecified pre-eclampsia, third trimester; Z3A.35 35 weeks gestation of pregnancy
CPT/HCPCS: 36415; 59025; 80048; 80305; 81001; 83735; 84112; 84450; 84460; 84550; 85007; 85025; 85378; 85384; 85610; 85730; 94761; G0283; G0378

== ENCOUNTER → 2020-11-29 15:28 | Outpatient (CLI) | payer MEDICAID, SELFPAY ==
[2020-11-29 16:04] LABS: Basophils # 0.1 K/mm3 (0-0.2); Basophils % 0.5 % (0.1-2.0); Eosinophils # 0.3 K/mm3 (0.0-0.4); Eosinophils % 1.9 % (0.1-12.0); Hematocrit 35.3 % (37.0-47.0); Hemoglobin 10.9 g/dL (12.2-16.2); Lymphocytes # 3.8 K/mm3 (0.7-4.5); Lymphocytes % 21.2 % (10-50); Mean Corpuscular HGB Conc 30.9 g/dL (31.8-35.4); Mean Corpuscular Hemoglobin 26.7 pg (27.0-31.2); Mean Corpuscular Volume 86.3 fl (81-99); Mean Platelet Volume 7.9 fl (7.4-10.4); Monocytes # 0.6 K/mm3 (0.1-1.0); Monocytes % 3.3 % (1.7-9.3); Neutrophils % 73.1 % (37.0-80.0); Platelet Count 951 K/mm3 (142-424); Red Blood Count 4.09 M/mm3 (4.20-5.40); Red Cell Distribution Width 14.4 % (11.5-17.5); White Blood Count 17.8 K/mm3 (4.8-10.8)
[2020-11-29 16:22] LABS: Alanine Aminotransferase 23 U/L (12-78); Albumin Level 4.4 g/dl (3.5-5.0); Albumin/Globulin Ratio 1.2 (1.1-1.8); Alkaline Phosphatase 121 U/L (38-126); Anion Gap 12.3 mEq/L (5-15); Aspartate Amino Transferase 26 U/L (14-36); Bilirubin,Total 0.3 mg/dl (0.2-1.3); Blood Urea Nitrogen 16 mg/dl (7-17); Calcium 10.4 mg/dl (8.4-10.2); Carbon Dioxide 24 mmol/L (22.0-30.0); Chloride 107 mmol/L (98-107); Estimated Glomerular Filt Rate 69 ml/min (>60); GFR (African American) 83 ML/MIN (>60); Globulin 3.7 g/dL (1.3-3.2); Glucose 97 mg/dl (74-100); Potassium 4.3 mmoL/L (3.5-5.1); Sodium 139 mmol/L (136-145); Total Protein,Serum 8.1 g/dl (6.3-8.2); Uric Acid 5.6 mg/dl (2.5-6.2)
[2020-11-29 17:43] LABS: Eosinophils % 1 % (0-3); Lymphocytes % 17 % (10-50); MANUAL DIFFERENTIAL MANUAL DIFFERENTIAL (MANUAL DIFF); Monocytes % 1 % (2-9); Neutrophils % 80 % (42-76); Platelet Estimate Marked Increase; RBC Morphology Normal; Total Cells Counted 100
== END ==
PROVIDERS: Visit Provider Nurse Practitioner Obstetrics & Gynecology
DX: O14.90 Unspecified pre-eclampsia, unspecified trimester (principal)
CPT/HCPCS: 36415; 80053; 84550; 85007; 85025

== ENCOUNTER → 2021-05-12 15:47 | Outpatient (CLI) | payer MEDICAID, SELFPAY ==
[2021-05-12 17:06] LABS: HCG,Quantitative < 2 mIU/ml (0-5.42)
== END ==
PROVIDERS: Visit Provider Nurse Practitioner Obstetrics & Gynecology
DX: N92.6 Irregular menstruation, unspecified (principal)
CPT/HCPCS: 36415; 84702

== ENCOUNTER 2021-06-24 11:36 | Emergency (ER) | payer MEDICAID, SELFPAY ==
[2021-06-24 13:00] VITALS: BP 130/91; PULSE 67; RESP 19; TEMP 36.8; O2SAT 99; BMI 38.7
--- NOTE | 2021-06-24 13:23 | HMH.EDUTC ---
[facility] [place] Disposition Clinical Impression: Exposure to COVID-19 virus Asthma Qualifiers: Asthma severity: unspecified severity Asthma persistence: unspecified Asthma complication type: uncomplicated Qualified Code(s): J45.909 - Unspecified asthma, uncomplicated Disposition: Home, Self-Care Condition on Discharge: Good Instructions: DI for Asthma -- Adult, DI for COVID-19 (Suspected or Confirmed ), Preventing the Spread of Coronavirus Discharge Instructions Additional Instructions: Monitor Temp, Over the counter Motrin or Tylenol as directed/as needed Tylenol every 4 hours and Motrin every 6 hours (as long as your family doctor has told you that you can take it) for fever or pain. and straight to ER if unable to lower temp less than 101.0 after medication given *Warm salt water gargles may help to soothe the throat *Throat Lozenges *Warm fluids like tea with honey may help to soothe the throat *Sleep elevated *Humidifier/Vaporizer Follow up IMMEDIATELY for new or worsening symptoms or no Noticeable improvement over the next 48-72 hours. 911 for difficulty breathing or swallowing You were tested for today for COVID19 your test result should be back in the next 24-48 hours, You was given written instructions for [facility] portal you can see your results there when they come back you may check it often to see if they are done You was given a handout with instructions for Self Quarantine and Self isolation for while you wait on test results and what to do if they are positive If you are positive the Health Dept will be contacting you also Make sure to take your Vitamins Vit. C Vit D and Zinc if you can take them Referrals: Provider,Referral, [Primary Care Provider] - As needed Forms: Work/School Release Medical Decision Making - Javi Inquiry Pt receiving controlled substance: No Javi was queried for this patient: No Vital Signs: 06/24/21 13:00 06/24/21 13:26 Temperature 98.2 F 98.2 F Temperature Source Oral Pulse Rate 67 Pulse Rate [Right Brachial] 67 Respiratory Rate 19 19 Blood Pressure 130/91 H Blood Pressure [Right Arm] 130/91 H Blood Pressure Mean [Right Arm] 104 Blood Pressure Source [Right Arm] Automatic Cuff Blood Pressure Position [Right Arm] Sitting 02 Sat by Pulse Oximetry 99 Oxygen Delivery Method Room Air - Lab Data Lab results reviewed: Yes: I reviewed the patient's lab results. Lab Results 06/24/21 13:21: [facility] Negative Orders (Tests/Meds): ED MEDICATIONS Discontinued Medications Generic Name Dose Route Start Last Admin Trade Name Jade PRN Reason Stop Dose Admin Methylprednisolone Sodium Succinate 125 mg 06/24/21 13:30 06/24/21 13:43 Methylprednisolone Sod Succ 125mg Vial IM 06/24/21 13:31 125 mg ONCE ONE Administration ORDERS Category Date Time Status Covid-19 Nasal PCR ([facility]) Routine Lab 06/24/21 13:14 Received Medical Decision Narrative: Urine test negative [facility] [place] HPI - General Stated complaint: covid test Time Seen by Provider: 06/24/21 13:23 Mode of Arrival: Ambulatory Source of Information: Patient Limitations: No Limitations Description of Symptoms (Recalled from Triage Doc. by RN): COVID TEST D/T EXPOSURE LAST WEEK. C/O COUGH AND SOA HEENT Symptoms (Recalled from RN notes): No Resp Symptoms (Recalled from RN notes): Yes Skin Symptoms (Recalled from RN notes): No MS Symptoms (Recalled from RN notes): No Functional Status (Recalled from RN notes): WNL - History of Present Illness Provider Complaint: Patient states that she wanted to get tested for COVID States that she has a history of asthma and allergies and not sure if they was acting up or if she may have COVID States that she has been having cough and runny nose and has been using her inhaler more than usual - Related Data Home Medications Medication Instructions Recorded Confirmed Pnv No.153/FA/Om3/Dha/Epa/Fish 1 tab PO DAILY 11/12/
[2021-06-24 13:26] VITALS: BP 130/91; PULSE 67; RESP 19; TEMP 36.8; O2SAT 99
[2021-06-24 13:38] LABS: UTC Pregnancy Test, Urine Negative (Negative)
== END 2021-06-24 14:00 | disposition home or self-care (01) ==
PROVIDERS: Emergency Provider Nurse Practitioner
DX: Z20.822 Contact with and (suspected) exposure to COVID-19 (principal); J45.909 Unspecified asthma, uncomplicated; F41.8 Other specified anxiety disorders; F17.210 Nicotine dependence, cigarettes, uncomplicated
CPT/HCPCS: 81025; 96372; 99202; G0463; U0003

== ENCOUNTER 2022-11-22 13:01 | Emergency (ER) | payer MEDICAID, SELFPAY ==
[2022-11-22] VITALS (11 sets, daily range): BP systolic 102–133; BP diastolic 57–88; PULSE 46–73; RESP 17–20; TEMP 36.7–36.8; O2SAT 98–100; BMI 29.5
--- NOTE | 2022-11-22 13:01 | ECG_ITS ---
APPROVED REPORT Exam: Resting ECG HR:58 bpm ECG Measurements Heart Rate 58 AXES TN 134 P 0 QRSd 80 QRS 93 QT 413 T 62 QTc 410 Conclusion SINUS BRADYCARDIA BORDERLINE RIGHT AXIS DEVIATION [QRS AXIS > 90] BORDERLINE ECG UNCONFIRMED REPORT Electronically signed by : Jez Gibson MD 11/23/2022 20:57:19
--- NOTE | 2022-11-22 13:36 | XR_ITS ---
FINAL REPORT CLINICAL HISTORY: chest pain FINDINGS: Two views of the chest were obtained. The heart size and pulmonary vascularity are within normal limits. The mediastinum is normal. No acute pulmonary abnormality is identified. There is no pneumothorax. The bony thorax is intact. IMPRESSION: No active cardiopulmonary disease. Reviewed, Interpreted and Dictated by Golden Hurd III, MD Transcribed by Latoya Stacy Authenticated and [facility]
[2022-11-22 13:51] LABS: Chloride 110 mmol/L (98-107); Sodium 142 mmol/L (136-145)
[2022-11-22 13:52] LABS: Potassium 3.8 mmoL/L (3.5-5.1)
[2022-11-22 13:54] LABS: Blood Urea Nitrogen 12 mg/dl (7-17); Creatinine Clearance Estimated 150 mL/min (50-200); Estimated Glomerular Filt Rate 122 ml/min (>60); GFR (African American) 147 ML/MIN (>60)
[2022-11-22 13:55] LABS: Anion Gap 7.8 mEq/L (5-15); Calcium 8.9 mg/dl (8.4-10.2); Carbon Dioxide 28 mmol/L (22.0-30.0); Glucose 89 mg/dl (74-100)
[2022-11-22 14:01] LABS: HCG Qualitative, Serum Negative (Negative)
[2022-11-22 14:11] LABS: Troponin I < 0.01 ng/ml (0.00-0.034)
[2022-11-22 14:19] LABS: Basophils # 0.1 K/mm3 (0-0.2); Basophils % 1.2 % (0.1-2.0); Eosinophils # 0.3 K/mm3 (0.0-0.4); Eosinophils % 2.9 % (0.1-12.0); Hematocrit 40.8 % (37.0-47.0); Hemoglobin 13.1 g/dL (12.2-16.2); Lymphocytes # 3.8 K/mm3 (0.7-4.5); Lymphocytes % 39.8 % (10-50); Mean Corpuscular Volume 87.3 fl (81-99); Mean Platelet Volume 8.2 fl (7.4-10.4); Monocytes # 0.3 K/mm3 (0.1-1.0); Monocytes % 3.6 % (1.7-9.3); Neutrophils % 52.4 % (37.0-80.0); Platelet Count 386 K/mm3 (142-424); Red Blood Count 4.67 M/mm3 (4.20-5.40); Red Cell Distribution Width 14.3 % (11.5-17.5); White Blood Count 9.5 K/mm3 (4.8-10.8)
--- NOTE | 2022-11-22 15:28 | HMH.EDGENADL ---
Discharge Plan Disposition Patient Disposition: Home, Self-Care Condition: Good Prescriptions Prescriptions: No Action (DME) Space Chamber Spacer See Rx Instructions .ROUTE .MEDSUPPLY Qty: 1 Rx Instructions: As directed triamcinolone acetonide 0.1 % ointment 1 applic TOPICAL BID Qty: 80 1RF Mirena 20 mcg/24 hours (8 yrs) 52 mg intrauterine device intrauterine albuterol sulfate 90 mcg/actuation HFA aerosol inhaler 2 puff inhalation Q4-6H PRN (Reason: shortness of breath or wheezing) Qty: 8.5 2RF Referrals Follow up/Referrals: Cristóbal Cook MD [Staff Physician] - See instructions Provider,MD José Miguel [Primary Care Provider] - See instructions Activity Restrictions/Add. Instructions Additional Instructions/Restrictions: Follow-up with cardiology, Dr. Cook. Call tomorrow to make appointment to be seen as soon as possible. Outpatient Holter monitor, 48 hours. Follow-up results with Dr. Cook. You will be called when a Holter monitor becomes available and will be instructed on how to get it applied. Clinical Impressions Clinical Impression: Bradycardia, sinus, Atypical chest pain Instructions Patient Instructions: DI for Atypical Chest Pain, DI for Bradycardia Discharge ED Provider: Werner Clancy General Adult HPI General Chief complaint: Chest Pain Stated complaint: chest pain Time Seen by Provider: 11/22/22 15:20 Mode of Arrival: Ambulatory Source of Information: Patient Limitations: No Limitations Description of Symptoms (Recalled from ER Triage Doc. by RN): pt to ed c/o chest tightness. pt states she was at [employer] doing her pre-employment and started having tightness in her chest and was bradycardic. pt denies a previous cardiac hx. History of Present Illness HPI narrative: Patient states that she was at her workplace and was told that her heart rate was low and to come to the emergency department. She says she has been having symptoms for a week where she feels like somebody is grabbing her heart and it last for a few minutes. She is not currently having any chest discomfort. Not associated with shortness of breath, nausea, or diaphoresis. No syncope. She says in the past she has been told that her heart rate goes too fast, particular when she is excited, she has never had a problem with a low heart rate. She is not on any cardiac medications. She does have asthma and uses an inhaler. No other chronic medical problems. She has a hormonal IUD. No recent surgeries, hospitalizations, or travel. Related Data Home Medications Medication Instructions Recorded Confirmed inhalational spacing device (Space #1 ea 01/01/22 01/01/22 Chamber) levonorgestrel 21 mcg/24 hours (8 intrauterine 11/13/22 11/13/22 yrs) 52 mg intrauterine device (Mirena) Previous Rx's Medication Instructions Recorded triamcinolone acetonide 0.1 % 1 applic topical BID #80 grams 01/01/22 topical ointment albuterol sulfate 90 mcg/actuation 2 puff inhalation Q4-6H PRN 06/19/22 aerosol inhaler shortness of breath or wheezing #8.5 grams Allergies Allergy/AdvReac Type Severity Reaction Status Date / Time Sulfa (Sulfonamide Allergy Severe Anaphylaxis Verified 11/13/22 10:50 Antibiotics) [facility] Disclaimer: The information contained in this section may have been updated after the patient was seen, as this information can be updated by other users. Social History Smoking Status: Never smoker second hand exposure: Yes alcohol intake: never substance use type: marijuana current occupational status: unemployed Travel in the last 8 weeks: None ROS Obtained: Yes Systems reviewed as appropriate & no additional complaints except as documented Constitutional Constitutional: Denies fever(s), Denies headache(s) and Denies weakness ENT Ears, Nose, Mouth, and Throat: Denies headache(s), Denies nasal disc
[2022-11-22 16:37] LABS: Magnesium 1.9 mg/dl (1.6-2.3)
--- NOTE | 2022-11-22 16:47 | PC.NURSE ---
2ND TROP SENT TO LAB
[2022-11-22 16:55] LABS: Triiodothryronine (T3) Uptake 30 % (23.5-40.5)
[2022-11-22 17:09] LABS: Thyroid Stimulating Hormone 2.21 uIU/mL (0.465-4.68)
[2022-11-22 17:33] LABS: Troponin I < 0.01 ng/ml (0.00-0.034)
[2022-11-22 17:56] LABS: D-Dimer < 0.25 ug/mL (0.0-0.5)
--- NOTE | 2022-11-22 18:37 | PC.NURSE ---
Called repiratory for halter monitor, stated that they used last one this am. Gave them name and phone number to call them when available. Dr Clancy ordered for 48 hour monitor.
== END 2022-11-22 19:05 | disposition home or self-care (01) ==
PROVIDERS: Emergency Provider Emergency Medicine
DX: R07.89 Other chest pain (principal); R00.1 Bradycardia, unspecified
CPT/HCPCS: 71046; 80048; 83735; 84436; 84443; 84479; 84484; 84703; 85025; 85378; 93005; 99285

== ENCOUNTER → 2022-11-23 15:28 | Outpatient (CLI) | payer MEDICAID, SELFPAY | PROVIDERS: Visit Provider Emergency Medicine | DX: R00.1 Bradycardia, unspecified (principal) | CPT/HCPCS: 93225; 93226 ==

== ENCOUNTER → 2022-11-26 10:24 | Outpatient (CLI) | payer MEDICAID, SELFPAY | PROVIDERS: Visit Provider Nurse Practitioner | DX: R00.2 Palpitations (principal); R00.1 Bradycardia, unspecified | CPT/HCPCS: 93270 ==

== ENCOUNTER → 2022-11-30 12:53 | Outpatient (CLI) | payer MEDICAID, SELFPAY ==
--- NOTE | 2022-11-30 12:55 | CA_ITS ---
APPROVED REPORT EXAM: Comprehensive 2D, Doppler, and color-flow Echocardiogram Machinery Dismantler: Barbara Spencer, RT(R) Ht: 4 ft 11 in Wt: 150lbs BSA: 1.63 BP: 108/80 mmHg Indications: cp, bradycardia, palpitations, fatigue, smoker, marijuana usage. 2D Dimensions Aortic Root 2.08 cm F: 2.7 - 3.3 LVEF (Morrison's) 76.70 % F: 54 - 74 LV Volume 104.00 mL F: 46 - 106 LV Volume Index 63.80 mL/m2 F: 29 - 61 LA Volume 36.80 mL LA Volume Index 22.58 mL/m2 (M/F) 16-34 M-Mode Dimensions RVDd 2.48 cm (0.9-2.6) LA Diam 3.87 cm (1.9-4.0) LVDd 5.06 cm (3.5-5.7) Ao Diam 2.66 cm (2.0-3.7) LVDs 3.99 cm (3.5-5.7) IVSd 0.80 cm (0.6-1.1) PWd 0.54 cm (0.6-1.1) EF (Teich) 42.80% FS 21.10% EDV (Teich) 121.60 mL ESV (Teich) 69.60 mL LV Diastology E Decel Time 150.00 (160-240 msec) E/A Ratio 2.3 MED E' 12.00 (< 7 cm/sec) E'/MED E' Ratio 9.75 (>14) LAT E' 18.70 (<10 cm/sec) E/LAT E' Ratio 6.26 (>14) Mitral Valve MV E Max Jw. 117.00 (40-130 cm/s) MV A Velocity 52.00 (40-130 cm/s) E/A Ratio 2.26 MV Decel. Time 150.00 (160-240 ms) MV PHT 44.00 ms Left Ventricle Left atrium is normal size, left ventricle is normal size, no concentric left ventricular hypertrophy, estimated ejection fraction 55% with no regional wall motion abnormality, diastolic parameters are within normal range. Right Ventricle Right atrium and right ventricular normal size and contractility. Aortic Valve Aortic valve is minimally thickened and fibrosed there is no aortic stenosis or aortic insufficiency. Mitral Valve Mitral was grossly normal, there is trace mitral regurgitation. Tricuspid Valve Tricuspid valve is grossly normal, there is trace tricuspid regurgitation, tricuspid regurgitation jet plus is inadequate for calculation of the right ventricular systolic pressure. Pulmonic Valve Pulmonic valve is poorly visualized. Great Vessels Aortic root is normal size. Inferior vena cava is normal size with normal inspiratory collapse. Pericardium No significant pericardial effusion noted. Conclusion 1. Normal left ventricular size, estimated ejection fraction 55% with no regional wall motion abnormality, diastolic parameters are within normal range. 2. Trace mitral and tricuspid regurgitation. 3. No significant pericardial effusion noted. 4. Inferior vena cava is normal size with normal inspiratory collapse. Electronically signed by : Burt Perez MD 11/30/2022 18:06:43
--- NOTE | 2022-11-30 13:19 | CA_ITS ---
APPROVED REPORT Exam: Exercise Treadmill Technologist: Selma Osorio, Ht: 4 ft 11 in Wt: 150 lbs BSA: 1.63 m2 HR: 42 bpm BP: 127/74 mmHg Medical History Medications: Albuterol,,,,, Mirena,,,,, Stress Test Details Test: Shreyas HR Resting HR: 52 bpm Max Heart Rate (APMHR): 195 bpm Max HR Achieved: 120 bpm Target HR (85% APMHR): 166 bpm % of APMHR: 62 Recovery HR: 51 bpm BP Resting BP: 124.0/68.0 mmHg Max BP: 131.0/68.0 mmHg Recovery BP: 131.0/68.0 mmHg ECG Clinical Exercise duration: 09:00 min Highest Stage Achieved: III Exercise capacity: 10.1 METs Stress ECG Conclusion Test stopped due to: arm fatigue Symptoms: Arm fatifue w/peak exercise. No chest pain SOB w/ exertion Arrhythmias/Ectopy: none Less than 1.[address] segment depression noted from the baseline EKG. The EKG portion of the exercise treadmill stress test is nondiagnostic as patient did not achieve the target heart rate. Test Summary REST . . . . . . . Standing REST . . . . . . . Standing REST 29:12 0.0 0.0 52 . 124/ 68 . . Stage 1 01:00 10.0 1.7 84 . . . . Stage 1 02:00 10.0 1.7 85 . . . . Stage 1 03:00 10.0 1.7 88 . 112/ 70 . . Stage 2 01:00 12.0 2.5 90 . . . . Stage 2 02:00 12.0 2.5 87 . . . . Stage 2 03:00 12.0 2.5 89 . 122/ 78 . . Stage 3 01:00 14.0 3.4 110 . . . . Stage 3 02:00 14.0 3.4 120 . . . . Stage 3 03:00 14.0 3.4 120 . . . Stop exercise at 09:00 RECOVERY 01:00 0.0 0.0 81 . 128/ 82 . . RECOVERY 02:00 0.0 0.0 73 . 128/ 82 . . RECOVERY 03:00 0.0 0.0 53 . 128/ 82 . . RECOVERY 04:00 0.0 0.0 63 . 118/ 61 . . RECOVERY 04:28 0.0 0.0 52 . 131/ 68 . . Electronically signed by : Burt Perez MD 11/30/2022 15:25:54
== END ==
PROVIDERS: Visit Provider Nurse Practitioner Family
DX: R07.89 Other chest pain (principal); R00.1 Bradycardia, unspecified; R00.2 Palpitations
CPT/HCPCS: 93017; 93306

== ENCOUNTER → 2022-12-17 12:10 | Outpatient (CLI) | payer MEDICAID, SELFPAY ==
[2022-12-17 13:06] LABS: Basophils # 0.1 K/mm3 (0-0.2); Basophils % 0.8 % (0.1-2.0); Eosinophils # 0.3 K/mm3 (0.0-0.4); Eosinophils % 2.6 % (0.1-12.0); Hematocrit 40.9 % (37.0-47.0); Hemoglobin 13.2 g/dL (12.2-16.2); Lymphocytes # 3.1 K/mm3 (0.7-4.5); Lymphocytes % 26.2 % (10-50); Mean Corpuscular HGB Conc 32.2 g/dL (31.8-35.4); Mean Corpuscular Hemoglobin 28.7 pg (27.0-31.2); Mean Corpuscular Volume 89.2 fl (81-99); Mean Platelet Volume 7.7 fl (7.4-10.4); Monocytes # 0.4 K/mm3 (0.1-1.0); Monocytes % 3.5 % (1.7-9.3); Neutrophils % 66.7 % (37.0-80.0); Platelet Count 386 K/mm3 (142-424); Red Blood Count 4.59 M/mm3 (4.20-5.40); Red Cell Distribution Width 14.3 % (11.5-17.5); White Blood Count 11.9 K/mm3 (4.8-10.8)
[2022-12-17 13:57] LABS: Chloride 110 mmol/L (98-107); Potassium 4.1 mmoL/L (3.5-5.1); Sodium 140 mmol/L (136-145)
[2022-12-17 14:00] LABS: Alanine Aminotransferase 9 U/L (12-78); Albumin Level 4.2 g/dl (3.5-5.0); Albumin/Globulin Ratio 1.4 (1.1-1.8); Alkaline Phosphatase 99 U/L (38-126); Anion Gap 9.1 mEq/L (5-15); Aspartate Amino Transferase 15 U/L (14-36); Bilirubin,Total 0.5 mg/dl (0.2-1.3); Blood Urea Nitrogen 9 mg/dl (7-17); Calcium 8.8 mg/dl (8.4-10.2); Carbon Dioxide 25 mmol/L (22.0-30.0); Estimated Glomerular Filt Rate 122 ml/min (>60); GFR (African American) 147 ML/MIN (>60); Globulin 3.1 g/dL (1.3-3.2); Glucose 82 mg/dl (74-100); Total Protein,Serum 7.3 g/dl (6.3-8.2)
[2022-12-17 14:27] LABS: HCG,Quantitative < 2 mIU/ml (0-5.42)
== END ==
PROVIDERS: PCP Nurse Practitioner Family; Visit Provider Nurse Practitioner Obstetrics & Gynecology
DX: Z30.09 Encounter for other general counseling and advice on contraception (principal)
CPT/HCPCS: 36415; 80053; 84702; 85025

== ENCOUNTER 2022-12-19 06:02 | Day surgery (SDC) | payer MEDICAID, SELFPAY ==
[2022-12-17 12:39] VITALS: BMI 29.7
[2022-12-19] VITALS (9 sets, daily range): BP systolic 115–160; BP diastolic 67–100; PULSE 53–66; RESP 14–18; TEMP 36.2–43; O2SAT 97–100
--- NOTE | 2022-12-19 07:57 | EXP.ANES.CKL ---
[facility] Disclaimer: The information contained in this section may have been updated after the patient was seen, as this information can be updated by other users. Medical History Abnormal cardiovascular stress test Atypical chest pain Bradycardia, sinus Marijuana use Palpitations Surgical History History of delivery Family History Other COPD (chronic obstructive pulmonary disease) Social History (Updated 12/19/22 @ 06:31 by Maryuri Em RN) Smoking Status: Current every day smoker tobacco type: cigarettes packs per day: 1 years smoked: 9 second hand exposure: Yes alcohol intake: current substance use type: marijuana current occupational status: employed Travel in the last 8 weeks: None [facility] Anesthesia Checklist Patient Identification Patient Identification: Verbal (Name & ) Structural Data Admitted From: Home Planned Operative Procedure/s: bilat salpingectomy Consent for Planned Operative Procedure(s) Verified: Yes NPO Status Verified Time NPO: 00:00 Additional verifications Anesthesia Reactions: No Hx Blood Transfusions: Yes Blood Transfusion Reaction: No Airway Assessment C-Spine Mobility Assessed: Yes TMJ Mobility Assessed: Yes Dentition: Good Dentition Neurological Assessment Level of Consciousness: Awake, Alert and Appropriate Anesthesia Plan Anesthesia Risk discussed: Yes Anesthesia Plan: Verified ASA Class: II Anesthesia Type: General
--- NOTE | 2022-12-19 08:20 | P.PNANES_ITS ---
[facility] Anesthesia Record Part I Anesthesia Record I Intake, IV Amount: 1,500 Estimated blood loss (mL): 0 Urine output (mL): 0 Blood Pressure: 150/100 SaO2: 98 Pulse Rate: 64 Respiratory Rate: 14 Temperature: 97.2 F Patient is:: Awake and Stable Stable to PACU at:: 08:20
--- NOTE | 2022-12-19 08:21 | EXP.OP.NOTE ---
Date of procedure: 12/19/22 Pre-op Diagnosis:: Desire for sterilization Post-op Diagnosis:: Desire for sterilization, adhesions Procedure performed:: Laparoscopic bilateral salpingectomy, lysis of adhesions Surgeon:: Segun Sandoval MD FACULTY RESEARCH PHYSICIAN:: Juan Manuel Seth Anesthesia: GETA Estimated blood loss (mL): 25 Clinical Note:: She is a 27-year-old lady who expressed desire for sterilization. The risks and benefits as well as the irreversibility of bilateral salpingectomy were discussed with the patient prior to surgery. Operative findings:: She had an anteverted somewhat bulky uterus. The upper abdomen appeared normal. The liver appeared normal. Pelvis appeared normal. There were some adhesions of omentum along the bladder flap. The tubes were followed to their fimbriated end and appeared normal. The ovaries appeared normal. The deep pelvis was normal. Operative note:: She was taken to the operating room where general anesthesia was found be adequate. She was prepped and draped in normal sterile fashion in the semilithotomy position. A weighted speculum was placed in the vagina and the anterior lip of the cervix was grasped with a tenaculum. I then inserted a Angela uterine manipulator into the cervical os. The balloon was then insufflated. I changed gloves and injected 10 cc of 0.5% ropivacaine around her umbilicus and made a small incision within the umbilicus. I inserted a Veress needle into the abdominal cavity. The peritoneal cavity was then insufflated with carbon dioxide gas to a pressure of 20 mmHg. I then inserted a 5 millimeter trocar under direct vision. I injected through and through the pubic hairline, made a small incision here and inserted an 8 mm trocar under direct vision. I identified the inferior epigastric artery on the left side, went lateral to these and injected through and through. I then placed a 5 mm trocar here under direct vision. The pelvis and upper abdomen were then inspected and the findings were as previously dictated. There were adhesions of the omentum to the bladder flap and using harmonic scalpel I was able to take these down. They were adherent to all along the bladder flap. I grasped the right tube at the cornua and using harmonic scalpel on coagulation mode I cut through the tube. I then grasped the distal tube and using harmonic scalpel cut along the mesosalpinx. The tube was removed through 8 mm trocar site. This was similarly performed on the patient's left side. I then injected 30 cc of 0.5% ropivacaine into the pelvis. After assuring hemostasis the gas was let out of the abdomen and hemostasis was once again assured. The abdomen was then reinsufflated. The secondary trochars were removed under direct vision. The gas was let out her abdomen. The primary trocar was then removed. The 8 mm trocar site was closed deeply with 2-0 Vicryl suture followed by subcuticular 4-0 Monocryl suture. The 5 mm trocar sites were closed with subcuticular 4-0 Monocryl. Sterile dressings were applied. The patient tolerated the procedure well and was taken to the recovery room in excellent condition. All sponge instrument and needle counts were correct. The estimated blood loss was less than 25 cc. Condition: stable Disposition: PACU Specimens:: Bilateral fallopian tubes Complications:: None
--- NOTE | 2022-12-19 09:03 | PC.NURSE ---
0848-detailed report called to EDGARDO Shelton 0850-pt transported to post op via stretcher w/becki rails up and left in care of EDGARDO Shelton with bed locked in lowest position, vss, pt stable
--- NOTE | 2022-12-20 14:47 | P.PNANES_ITS ---
[facility] Anesthesia Record Part II Anesthesia Record Part II Discharge Time: 08:50 Destination: Surgical Day Care (OP Surgery) PACU nurse assessment reviewed?: Yes Patient Condition:: Good Anesthesia Complications:: None Swallowing reflex intact?: Yes Cyanosis?: No Blood Pressure: 137/85 Pulse Rate: 66 Temperature: 97.5 F Mental Status: Alert & Oriented Pain level:: 0 Nausea and/or vomitting:: None Intake, IV Amount: 0
[2022-12-20 14:48] VITALS: BP 137/85; PULSE 66; TEMP 36.4
== END 2022-12-19 09:25 | disposition home or self-care (01) ==
PROVIDERS: PCP Nurse Practitioner Family; Visit Provider Nurse Practitioner Obstetrics & Gynecology
PROC: (CPT 58661; principal; 2022-12-19 07:30)
DX: Z30.2 Encounter for sterilization (principal); K66.0 Peritoneal adhesions (postprocedural) (postinfection); F17.210 Nicotine dependence, cigarettes, uncomplicated; Z79.899 Other long term (current) drug therapy
CPT/HCPCS: 58661; 49329; 96374; J2405; J2710

== ENCOUNTER 2023-07-15 13:05 | Emergency (ER) | payer MEDICAID, SELFPAY ==
[2023-07-15 13:20] VITALS: BP 127/83; PULSE 67; RESP 21; TEMP 37.1; O2SAT 98; BMI 28.3
--- NOTE | 2023-07-15 13:58 | EXP.UTC ---
Discharge Plan Disposition Patient Disposition: Home, Self-Care Condition: Good Prescriptions Prescriptions: New benzonatate 100 mg capsule 100 mg PO TID PRN (Reason: cough) Qty: 30 0RF methylprednisolone [Medrol (Tereso)] 4 mg tablets,dose pack See Rx Instructions .Route .COMPLEX 6 Days Qty: 21 0RF Rx Instructions: taper pack; azithromycin [Zithromax Z-Tereso] 250 mg tablet See Rx Instructions .ROUTE .COMPLEX 5 Days Qty: 6 0RF Rx Instructions: For 250 mg dose pack: take 500 mg today (day 1), then 250 mg for 4 days (days 2-5) No Action (DME) Space Chamber Spacer See Rx Instructions .ROUTE .MEDSUPPLY Qty: 1 Rx Instructions: As directed albuterol sulfate 90 mcg/actuation HFA aerosol inhaler 2 puff inhalation Q4-6H PRN (Reason: shortness of breath or wheezing) Qty: 8.5 2RF Referrals Follow up/Referrals: Ora Colbert APRN [Primary Care Provider] - See instructions Activity Restrictions/Add. Instructions Additional Instructions/Restrictions: *Monitor Temp, Over the counter Motrin or Tylenol as directed/as needed Tylenol every 4 hours and Motrin every 6 hours (as long as your family doctor has told you that you can take it) for fever or pain. and straight to ER if unable to lower temp less than 101.0 after medication given *Warm salt water gargles may help to soothe the throat *Throat Lozenges? *Warm fluids like tea with honey may help to soothe the throat? *Sleep elevated *Humidifier/Vaporizer Follow up IMMEDIATELY for new or worsening symptoms or no Noticeable improvement over the next 48-72 hours. 911 for difficulty breathing or swallowing You were tested for today for COVID19 your test result should be back in the next 24 hours You may check your result on the [facility] Portal for your results if you are positive you must Quarantine for 5 days Clinical Impressions Clinical Impression: Sinusitis Qualifiers: Sinusitis location: unspecified location Chronicity: unspecified Qualified Code(s): J32.9 - Chronic sinusitis, unspecified Stand Alone Forms Stand Alone Forms: Work/School Release Instructions Patient Instructions: Sinusitis, Sinus Headache Discharge ED Provider: Ani Gonzalez [facility] [place] HPI General Stated complaint: cough, soa, lung pain Mode of Arrival: Ambulatory Source of Information: Patient Limitations: No Limitations Time Seen by Provider: 07/15/23 13:58 Description of Symptoms (Recalled from Triage Doc. by RN): PATIENT C/O SWEATING, COUGH, AND SOA X 2 DAYS HEENT Symptoms (Recalled from RN notes): No Resp Symptoms (Recalled from RN notes): Yes Skin Symptoms (Recalled from RN notes): No MS Symptoms (Recalled from RN notes): No Functional Status (Recalled from RN notes): WNL History of Present Illness Provider Complaint: Patient states that she has been having sinus congestion and pressure for about a week and for the last several days she has been having drainage in the bavck of her throat, cough, congestion and states that she has a hx of asthma and when she has a coughing episode it makes her feel a little hard to breath States that she was at work and started coughing and they made her come get checked out and get tested for COVID Related Data Home Medications Medication Instructions Recorded Confirmed inhalational spacing device (Space #1 ea 01/01/22 01/09/23 Chamber) Previous Rx's Medication Instructions Recorded albuterol sulfate 90 mcg/actuation 2 puff inhalation Q4-6H PRN 06/19/22 aerosol inhaler shortness of breath or wheezing #8.5 grams azithromycin 250 mg tablet See Rx Instructions PO .COMPLEX 5 07/15/23 (Zithromax Z-Tereso) days #6 tabs benzonatate 100 mg capsule 100 mg PO TID PRN cough #30 caps 07/15/23 methylprednisolone 4 mg tablets in See Rx Instructions .Route 07/15/23 a dose pack (Medrol (Tereso)) .COMPLEX 6 days #21 tabs Allergies Allergy/AdvReac Type Severity Reaction Statu
[2023-07-15 14:18] VITALS: BP 127/83; PULSE 67; RESP 21; TEMP 37.1; O2SAT 98
== END 2023-07-15 14:20 | disposition home or self-care (01) ==
PROVIDERS: Emergency Provider Nurse Practitioner; PCP Nurse Practitioner Family
DX: J01.90 Acute sinusitis, unspecified (principal); F17.210 Nicotine dependence, cigarettes, uncomplicated; R94.30 Abnormal result of cardiovascular function study, unspecified
CPT/HCPCS: 87635; 99212; 99214; G0463

== ENCOUNTER 2024-01-15 09:23 | Emergency (ER) | payer BC, SELFPAY ==
[2024-01-15 09:30] VITALS: BP 110/48; PULSE 62; RESP 18; TEMP 36.8; O2SAT 99; BMI 32.3
--- NOTE | 2024-01-15 09:45 | EXP.UTC ---
Discharge Plan Disposition Patient Disposition: Home, Self-Care Condition: Good Prescriptions Prescriptions: New cephalexin 500 mg capsule 500 mg PO BID 7 Days Qty: 14 0RF phenazopyridine [Pyridium] 200 mg tablet 200 mg PO Q8H 2 Days Qty: 6 0RF No Action (DME) Space Chamber Spacer See Rx Instructions .ROUTE .MEDSUPPLY Qty: 1 Rx Instructions: As directed albuterol sulfate 90 mcg/actuation HFA aerosol inhaler 2 puff inhalation Q4-6H PRN (Reason: shortness of breath or wheezing) Qty: 8.5 2RF Referrals Follow up/Referrals: Provider,Referral, MD [Primary Care Provider] - See instructions Activity Restrictions/Add. Instructions Additional Instructions/Restrictions: *Increase fluids. Water not Soda or Tea *Start antibiotic immediately and be sure to take as ordered for the FULL length of time although you should start to see improvement over the next 48 hours *Pyridium as needed Remember this medication will turn your urine . This is normal but it will stain what ever it gets on *You should not use Pyridium for more than 48 hours. If so , follow up with your primary physician to review urine culture and ensure that antibiotic is adequate for infection *Be SURE to follow up anytime for new or worsening symptoms with your family doctor. AND in 48 hours for urine culture results with your family doctor, if you do not have a doctor then you may call back to the [facility] for urine culture results and further treatment. We do recommend that you choose and establish care with a Primary Care Physician. ?AND follow up with them ?in 10-14 days to repeat UA to ensure infection is resolved and blood no longer present *Be sure to let your PCP know that we sent urine cultures from the [facility] so they can follow up to ensure that you area the on the correct antibiotic Call your doctor office and make appointment for 48 hours (2 days from today) ?to follow up and get the results of your urine culture and further treatment Clinical Impressions Clinical Impression: UTI (urinary tract infection) Instructions Patient Instructions: DI for Urinary Tract Infection (UTI), Urinary Tract Infection Discharge ED Provider: Ani Gonzalez [facility] – [place] HPI General Stated complaint: Pain after urinating, frequent urges Mode of Arrival: Ambulatory Source of Information: Patient Limitations: No Limitations Time Seen by Provider: 01/15/24 09:46 Description of Symptoms (Recalled from Triage Doc. by RN): Pt's symptoms are pelvic pressure. HEENT Symptoms (Recalled from RN notes): No Resp Symptoms (Recalled from RN notes): No Skin Symptoms (Recalled from RN notes): No MS Symptoms (Recalled from RN notes): No Functional Status (Recalled from RN notes): n/A History of Present Illness Provider Complaint: Patient states that she has been having pain/burning with urination and feeling of urgency and frequency States that she has pressure like she has to go States that she tried OTC uti medication but hasnt helped much Denies fever, chills, body aches, n/v Related Data Home Medications Medication Instructions Recorded Confirmed inhalational spacing device (Space #1 ea 01/01/22 01/09/23 Chamber) Previous Rx's Medication Instructions Recorded albuterol sulfate 90 mcg/actuation 2 puff inhalation Q4-6H PRN 06/19/22 aerosol inhaler shortness of breath or wheezing #8.5 grams cephalexin 500 mg capsule 500 mg PO BID 7 days #14 caps 01/15/24 phenazopyridine 200 mg tablet 200 mg PO Q8H pain 2 days #6 tabs 01/15/24 (Pyridium) Allergies Allergy/AdvReac Type Severity Reaction Status Date / Time Sulfa (Sulfonamide Allergy Severe Anaphylaxis Verified 01/15/24 09:41 Antibiotics) Worker's Comp Is this a Worker's Comp case?: No [facility] Disclaimer: The information contained in this section may have been updated after the patient was seen, as this information can be updated by other users. Medical History (Updated 01/15/24 @ 09:52 by Ani Gonzalez APRN) Abnormal cardiovascular stress test Marijuana use Palpitations Atypical chest pain Bradycardia, sinus Surgical History H/O tubal ligation History of delivery Family History Other COPD (chronic obstructive pulmonary disease) Social History Smoking Status: Current every day smoker tobacco type: cigarettes packs per day: 1 years smoked: 9 second hand exposure: Yes alcohol intake: current substance use type: marijuana current occupational status: employed Travel in the last 8 weeks: None ROS Obtained: Yes All systems reviewed & no additional complaints except as documented and Yes Systems reviewed as appropriate & no additional complaints except as documented Constitutional Constitutional: Reports system reviewed and no additional complaints, except as documented, Reports as per HPI, Denies body ache, Denies chills and Denies fever(s) ENT Ears, Nose, Mouth, and Throat: Reports system reviewed and no additional complaints, except as documented and Reports as per HPI Cardiovascular Cardiovascular: Reports system reviewed and no additional complaints, except as documented and Reports as per HPI Respiratory Respiratory: Reports system reviewed and no additional complaints, except as documented and Reports as per HPI Gastrointestinal Gastrointestingal: Reports system reviewed and no additional complaints, except as documented and as per HPI Genitourinary Female Genitourinary: Reports system reviewed and no additional complaints, except as documented, Reports as per HPI, Reports dysuria, Reports urinary frequency, Reports urinary urgency and Reports other (pressure like she has to go) Musculoskeletal Musculoskeletal: Reports system reviewed and no additional complaints, except as documented, Reports as per HPI and Denies back pain Physical Exam General General appearance: alert and in no apparent distress ENT ENT exam: Present mucous membranes moist Respiratory Respiratory exam: Present normal lung sounds bilaterally; Absent respiratory distress or wheezes Cardiovascular Cardiovascular exam: Present regular rate, normal rhythm and normal heart sounds Abdominal Exam Abdominal exam: Present soft and normal bowel sounds; Absent distention or tenderness Neurological Exam Neurological exam: Present alert, oriented X3 and normal gait Medical Decision Making Javi Inquiry Pt receiving controlled substance: No Javi was queried for this patient: No Vital Signs: 01/15/24 09:30 Temperature 98.2 F Temperature Source Oral Pulse Rate [Right Radial] 62 Respiratory Rate 18 Blood Pressure [Right Arm] 110/48 L Blood Pressure Mean [Right Arm] 68 Blood Pressure Source [Right Arm] Automatic Cuff Blood Pressure Position [Right Arm] Sitting 02 Sat by Pulse Oximetry 99 Oxygen Delivery Method Room Air Lab Data Lab results reviewed: Yes I reviewed the patient's lab results. Orders (Tests/Meds): ORDERS Category Date Time Status Urine Culture Stat Micro 01/15/24 09:44 Ordered
[2024-01-15 09:54] LABS: Color,Urine Dark Yellow (Yellow)
[2024-01-15 09:55] LABS: Apearance,Urine Clear (Clear); Bilirubin,Urine Negative (Negative); Blood, Urine Negative (Negative); Glucose,Urine (UA) Negative (Negative); Ketones,Urine Negative (Negative); PH,Urine 5.5 (5.0-8.5); Protein,Urine Trace (Negative); UTC Leukocyte Esterase,Urine Trace (Negative); UTC Nitrate,Urine Negative (Negative); UTC Pregnancy Test, Urine Negative (Negative); Urobilinogen,Urine 0.2 EU/dl (0.2)
[2024-01-15 09:56] VITALS: BP 110/48; PULSE 62; RESP 18; TEMP 36.8; O2SAT 99
== END 2024-01-15 09:56 | disposition home or self-care (01) ==
PROVIDERS: Emergency Provider Nurse Practitioner
DX: N39.0 Urinary tract infection, site not specified (principal); R30.0 Dysuria; F17.210 Nicotine dependence, cigarettes, uncomplicated
CPT/HCPCS: 81003; 81025; 87086; 99212; 99214; G0463

== ENCOUNTER 2024-07-06 08:24 | Emergency (ER) | payer BC, SELFPAY ==
[2024-07-06 08:30] VITALS: BP 122/66; PULSE 52; RESP 20; TEMP 36.8; O2SAT 100; BMI 34.1
[2024-07-06 08:43] LABS: Apearance,Urine Clear (Clear); Color,Urine Yellow (Yellow)
[2024-07-06 08:44] LABS: PH,Urine 6.5 (5.0-8.5); Specific Gravity, Urine 1.025 (1.005-1.030)
[2024-07-06 08:45] LABS: Bilirubin,Urine Negative (Negative); Blood, Urine Trace (Negative); Glucose,Urine (UA) Negative (Negative); Ketones,Urine Negative (Negative); Protein,Urine Negative (Negative); UTC Leukocyte Esterase,Urine Trace (Negative); UTC Nitrate,Urine Negative (Negative); Urobilinogen,Urine 0.2 EU/dl (0.2)
[2024-07-06 09:17] VITALS: BP 122/66; PULSE 52; RESP 20; TEMP 36.8; O2SAT 100
--- NOTE | 2024-07-06 09:18 | EXP.UTC ---
Discharge Plan Disposition Patient Disposition: Home, Self-Care Condition: Good Prescriptions Prescriptions: New fluconazole 150 mg tablet 150 mg PO ONCE Qty: 1 5RF nystatin 100,000 unit/gram cream 1 applic topical BID 7 Days Qty: 15 2RF phenazopyridine [Pyridium] 200 mg tablet 200 mg PO Q8H 2 Days Qty: 6 0RF nitrofurantoin monohyd/m-cryst [Macrobid] 100 mg Capsule 100 mg PO BID Qty: 10 0RF Rx Instructions: must administer with a meal/food Referrals Follow up/Referrals: Provider,Referral, MD [Primary Care Provider] - See instructions Activity Restrictions/Add. Instructions Additional Instructions/Restrictions: Drink plenty of fluids. Take tylenol or ibuprofen for pain or fever. Take the medications as directed. Follow up with your regular doctor. GO TO THE ER FOR ANY WORSENING SYMPTOMS The pyridium will make your urine turn orange, this is an expected side effect. It will stain your clothes if it comes into contact with them. We will culture the urine. That will tell what bacteria is causing your infection and which antibiotics will treat it best. Clinical Impressions Clinical Impression: UTI (urinary tract infection) Stand Alone Forms Stand Alone Forms: Work/School Release Instructions Patient Instructions: Urine Culture, DI for Urinary Tract Infection (UTI), Fluconazole, Nystatin Topical Print Language Print Language: Ukrainian Discharge ED Provider: Reese Roberts [facility] General Stated complaint: pain, itching and burning in vaginal area Mode of Arrival: Ambulatory Source of Information: Patient Limitations: No Limitations Time Seen by Provider: 07/06/24 09:08 Description of Symptoms (Recalled from Triage Doc. by RN): PATIENT C/O ITCHING AND BURNING TO GENITAL AREA X 1 WEEK HEENT Symptoms (Recalled from RN notes): No Resp Symptoms (Recalled from RN notes): No Skin Symptoms (Recalled from RN notes): No MS Symptoms (Recalled from RN notes): No Functional Status (Recalled from RN notes): WNL Related Data Previous Rx's ?Medication ?Instructions ?Recorded fluconazole 150 mg tablet 150 mg PO ONCE 1 dose #1 tab 07/06/24 nitrofurantoin 100 mg PO BID #10 caps 07/06/24 monohydrate/macrocrystals 100 mg capsule (Macrobid) nystatin 100,000 unit/gram topical 1 applic topical BID 7 days #15 07/06/24 cream grams phenazopyridine 200 mg tablet 200 mg PO Q8H 2 days #6 tabs 07/06/24 (Pyridium) Allergies Allergy/AdvReac Type Severity Reaction Status Date / Time Sulfa (Sulfonamide Allergy Severe Anaphylaxis Verified 01/15/24 09:41 Antibiotics) Worker's Comp Is this a Worker's Comp case?: No [facility] Disclaimer: The information contained in this section may have been updated after the patient was seen, as this information can be updated by other users. Medical History (Updated 07/06/24 @ 09:12 by Reese Roberts APRN) UTI (urinary tract infection) Depression Anxiety Asthma Abnormal cardiovascular stress test Marijuana use Palpitations Atypical chest pain Bradycardia, sinus Surgical History H/O tubal ligation History of delivery Family History Other COPD (chronic obstructive pulmonary disease) Social History Smoking Status: Current every day smoker tobacco type: cigarettes packs per day: 1 years smoked: 9 second hand exposure: Yes alcohol intake: current alcohol intake frequency: other substance use type: marijuana current occupational status: employed Travel in the last 8 weeks: None ROS Obtained: Yes All systems reviewed & no additional complaints except as documented Constitutional Constitutional: Reports system reviewed and no additional complaints, except as documented, Denies chills and Denies fever(s) Eyes Eyes: Denies eye discharge ENT Ears, Nose, Mouth, and Throat: Denies dysphagia, Denies sore throat and Denies throat swelling Cardiovascular Cardiovascular: Denies chest pain and Denies dyspnea Respiratory Respiratory: Denies chest congestion, Denies cough and Denies dyspnea Gastrointestinal Gastrointestingal: Denies abdominal pain, constipation, diarrhea, dysphagia, nausea or vomiting Genitourinary Female Genitourinary: Reports as per HPI, Reports dysuria, Reports urinary frequency, Denies urinary incontinence, Reports urinary hesitancy and Reports urinary urgency Musculoskeletal Musculoskeletal: Denies arthralgias and Reports back pain Integumentary/Breasts Skin/Breast: Denies rash Neurologic Neurologic: Denies paresthesias Allergic/Immunologic Allergic/Immunologic: Denies throat swelling Physical Exam General General appearance: alert and in no apparent distress Head Head exam: atraumatic and normocephalic Eye Eye exam: Present normal appearance, PERRL and EOMI ENT ENT exam: Present normal exam, mucous membranes moist, TM's normal bilaterally and normal external ear exam Neck Neck exam: Present normal inspection, full ROM and trachea midline; Absent tenderness, meningismus or lymphadenopathy Chest Chest inspection: Present normal inspection and symmetric chest wall rise; Absent tenderness Respiratory Respiratory exam: Present normal lung sounds bilaterally; Absent respiratory distress, wheezes or stridor Cardiovascular Cardiovascular exam: Present regular rate, normal rhythm and normal heart sounds Abdominal Exam Abdominal exam: Present soft and normal bowel sounds; Absent distention, tenderness, guarding, rebound, rigidity, incision, psoas sign, obturator sign, heel tap sign, Pineda's sign, Rovsing's sign or tenderness at McBurney's Point Extremities Exam Extremities exam: Present normal inspection, full ROM and normal capillary refill; Absent tenderness, edema, joint swelling, calf tenderness or cyanosis Back Exam Back exam: Present normal inspection and full ROM; Absent tenderness, CVA tenderness (R) or CVA tenderness (L) Neurological Exam Neurological exam: Present alert, oriented X3 and normal gait Psychiatric Psychiatric exam: Present normal affect and normal mood Skin Skin exam: Present warm, dry, intact and normal color Lymphatic Lymphatic Findings: no adenopathy Medical Decision Making Medical Records Medical records reviewed: No I reviewed the patient's medical records. Javi Inquiry Pt receiving controlled substance: No Vital Signs: 07/06/24 08:30 Temperature 98.3 F Temperature Source Oral Pulse Rate [Left Brachial] 52 L Respiratory Rate 20 Blood Pressure [Left Arm] 122/66 Blood Pressure Mean [Left Arm] 84 Blood Pressure Source [Left Arm] Automatic Cuff Blood Pressure Position [Left Arm] Sitting 02 Sat by Pulse Oximetry 100 Oxygen Delivery Method Room Air Lab Data Lab results reviewed: Yes I reviewed the patient's lab results. Lab Results 07/06/24 08:42: Urine Color Yellow, Urine Appearance Clear, Urine pH 6.5, Ur Specific [place] 1.025, Urine Protein Negative, Urine Glucose (UA) Negative, Urine Ketones Negative, Urine Blood Trace, Urine Nitrate Negative, Urine Bilirubin Negative, Urine Urobilinogen 0.2, Ur Leukocyte Esterase Trace Orders (Tests/Meds): ORDERS Category Date Time Status Urine Culture Stat Micro 07/06/24 08:42 Ordered
[2024-07-08 04:10] LABS: Neisseria gonorrhoeae, NAA Negative (Negative)
== END 2024-07-06 09:19 | disposition home or self-care (01) ==
PROVIDERS: Emergency Provider Nurse Practitioner Family
DX: N39.0 Urinary tract infection, site not specified (principal); A56.00 Chlamydial infection of lower genitourinary tract, unspecified
CPT/HCPCS: 81003; 87086; 87491; 87591; 99212; 99214; G0463

== ENCOUNTER 2024-07-08 08:41 | Emergency (ER) | payer BC, SELFPAY ==
[2024-07-08 09:30] VITALS: BP 108/64; PULSE 59; RESP 20; TEMP 36.7; O2SAT 99; BMI 33.0
--- NOTE | 2024-07-08 09:34 | ED_ITS ---
Discharge Plan Disposition Patient Disposition: Home, Self-Care Condition: Good Prescriptions Prescriptions: New doxycycline hyclate 100 mg capsule 100 mg PO BID 7 Days Qty: 14 0RF Referrals Follow up/Referrals: Provider,Referral, MD [Primary Care Provider] - See instructions Activity Restrictions/Add. Instructions Additional Instructions/Restrictions: Take medication as prescribed NO sexual activity during the 7 days of treatment and for 7 days after treatment to make sure the infection has cleared Follow up with your Family Doctor and/or OBGYN Make sure to inform anyone that you have had sexual encounters with to notify them that need to get tested Clinical Impressions Clinical Impression: Chlamydia Instructions Patient Instructions: Chlamydia, Doxycycline Print Language Print Language: Latvian Discharge ED Provider: Ani Gonzalez Soniya [facility] HPI General Stated complaint: disclose with doctor Mode of Arrival: Ambulatory Source of Information: Patient Time Seen by Provider: 07/08/24 09:35 Description of Symptoms (Recalled from Triage Doc. by RN): WAS CALLED ABOUT TEST RESULTS AND NEEDS SHOT HEENT Symptoms (Recalled from RN notes): No Resp Symptoms (Recalled from RN notes): No Skin Symptoms (Recalled from RN notes): No MS Symptoms (Recalled from RN notes): No Functional Status (Recalled from RN notes): WNL History of Present Illness Provider Complaint: Patient was recently tested for Chlamydia and Gonorrhea and her test results came back and she was positive for Chlamydia so she came in to get treated Related Data Previous Rx's ?Medication ?Instructions ?Recorded doxycycline hyclate 100 mg capsule 100 mg PO BID 7 days #14 caps 07/08/24 Allergies Allergy/AdvReac Type Severity Reaction Status Date / Time Sulfa (Sulfonamide Allergy Severe Anaphylaxis Verified 01/15/24 09:41 Antibiotics) Worker's Comp Is this a Worker's Comp case?: No [facility] Disclaimer: The information contained in this section may have been updated after the patient was seen, as this information can be updated by other users. Medical History (Updated 07/08/24 @ 09:47 by Ani Gonzalez APRN) UTI (urinary tract infection) Depression Anxiety Asthma Abnormal cardiovascular stress test Marijuana use Palpitations Atypical chest pain Bradycardia, sinus Surgical History H/O tubal ligation History of delivery Family History Other COPD (chronic obstructive pulmonary disease) Social History Smoking Status: Current every day smoker tobacco type: cigarettes packs per day: 1 years smoked: 9 second hand exposure: Yes alcohol intake: current alcohol intake frequency: other substance use type: marijuana current occupational status: employed Travel in the last 8 weeks: None ROS Obtained: Yes All systems reviewed & no additional complaints except as documented and Yes Systems reviewed as appropriate & no additional complaints except as documented Constitutional Constitutional: Reports system reviewed and no additional complaints, except as documented Cardiovascular Cardiovascular: Reports system reviewed and no additional complaints, except as documented and Reports as per HPI Respiratory Respiratory: Reports system reviewed and no additional complaints, except as documented and Reports as per HPI Gastrointestinal Gastrointestingal: Reports system reviewed and no additional complaints, except as documented and as per HPI Genitourinary Female Genitourinary: Reports system reviewed and no additional complaints, except as documented and Reports as per HPI Physical Exam General General appearance: alert and in no apparent distress ENT ENT exam: Present mucous membranes moist Respiratory Respiratory exam: Present normal lung sounds bilaterally; Absent respiratory distress or wheezes Cardiovascular Cardiovascular exam: Present regular rate, normal rhythm and normal heart sounds Abdominal Exam Abdominal exam: Present soft and normal bowel sounds; Absent distention or tenderness Neurological Exam Neurological exam: Present alert, oriented X3 and normal gait Medical Decision Making Medical Records Screening: Per USPSTF and CDC recommendations, given the prevalence of disease in our region, it is our hospital?s policy to screen for HIV and viral Hepatitis for all patients aged 18 and over and those with ongoing risk factors. Javi Inquiry Pt receiving controlled substance: No Javi was queried for this patient: No Vital Signs: 07/08/24 09:30 Temperature 98.0 F Temperature Source Oral Pulse Rate [Left Brachial] 59 L Respiratory Rate 20 Blood Pressure [Left Arm] 108/64 L Blood Pressure Mean [Left Arm] 78 02 Sat by Pulse Oximetry 99 Medical Decision Narrative: Patient was recently tested for Chlamydia and Gonorrhea and she was notified earlier this morning that she tested positive for Chlamydia so she came in to get treated Medication discussed with pharmacy
[2024-07-08 10:04] VITALS: BP 108/64; PULSE 59; RESP 20; TEMP 36.6
== END 2024-07-08 10:05 | disposition home or self-care (01) ==
PROVIDERS: Emergency Provider Nurse Practitioner
DX: A56.00 Chlamydial infection of lower genitourinary tract, unspecified (principal)
CPT/HCPCS: 96372; 99212; 99214; G0463

== ENCOUNTER 2024-07-20 08:00 | Emergency (ER) | payer BC, SELFPAY ==
[2024-07-20 08:10] VITALS: BP 126/81; PULSE 65; RESP 18; TEMP 37.2; O2SAT 97; BMI 34.0
--- NOTE | 2024-07-20 08:49 | EXP.UTC ---
Discharge Plan Disposition Patient Disposition: Home, Self-Care Condition: Good Referrals Follow up/Referrals: Provider,Referral, MD [Primary Care Provider] - See instructions Activity Restrictions/Add. Instructions Additional Instructions/Restrictions: Drink plenty of fluids. Follow up with your regular doctor. 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 by RN): PATIENT REQUESTING STD CHECK HEENT Symptoms (Recalled from RN notes): No Resp Symptoms (Recalled from RN notes): No Skin Symptoms (Recalled from RN notes): No MS Symptoms (Recalled from RN notes): No Functional Status (Recalled from RN notes): WNL Related Data Allergies Allergy/AdvReac Type Severity Reaction Status Date / Time Sulfa (Sulfonamide Allergy Severe Anaphylaxis Verified 01/15/24 09:41 Antibiotics) Worker's Comp Is this a Worker's Comp case?: No [facility] Disclaimer: The information contained in this section may have been updated after the patient was seen, as this information can be updated by other users. Medical History (Updated 07/20/24 @ 08:53 by Reese Roberts APRN) UTI (urinary tract infection) Depression Anxiety Asthma Abnormal cardiovascular stress test Marijuana use Palpitations Atypical chest pain Bradycardia, sinus Surgical History H/O tubal ligation History of delivery Family History Other COPD (chronic obstructive pulmonary disease) Social History Smoking Status: Current every day smoker tobacco type: cigarettes packs per day: 1 years smoked: 9 second hand exposure: Yes alcohol intake: current alcohol intake frequency: other substance use type: marijuana current occupational status: employed Travel in the last 8 weeks: None ROS Obtained: Yes All systems reviewed & no additional complaints except as documented Constitutional Constitutional: Denies chills and Denies fever(s) Eyes Eyes: Denies eye discharge ENT Ears, Nose, Mouth, and Throat: Denies dizziness, Denies otalgia and Denies sore throat Cardiovascular Cardiovascular: Denies chest pain Respiratory Respiratory: Denies shortness of breath, Denies chest congestion, Denies cough, Denies stridor and Denies wheezing Gastrointestinal Gastrointestingal: Denies nausea or vomiting Musculoskeletal Musculoskeletal: Reports system reviewed and no additional complaints, except as documented and Denies arthralgias Integumentary/Breasts Skin/Breast: Denies rash Neurologic Neurologic: Denies dizziness and Denies paresthesias Allergic/Immunologic Allergic/Immunologic: Denies wheezing Physical Exam General General appearance: alert and in no apparent distress Head Head exam: atraumatic, normocephalic and normal inspection Eye Eye exam: Present normal appearance, PERRL and EOMI ENT ENT exam: Present normal exam, normal oropharynx, mucous membranes moist, TM's normal bilaterally and normal external ear exam Neck Neck exam: Present normal inspection, full ROM and trachea midline; Absent meningismus or lymphadenopathy Chest Chest inspection: Present normal inspection and symmetric chest wall rise; Absent tenderness Respiratory Respiratory exam: Present normal lung sounds bilaterally; Absent respiratory distress Cardiovascular Cardiovascular exam: Present regular rate and normal rhythm; Absent JVD Abdominal Exam Abdominal exam: Present soft and normal bowel sounds; Absent distention, tenderness or guarding Extremities Exam Extremities exam: Present normal inspection, full ROM and normal capillary refill; Absent calf tenderness Back Exam Back exam: Present normal inspection; Absent tenderness Neurological Exam Neurological exam: Present alert and oriented X3 Psychiatric Psychiatric exam: Present normal affect and normal mood Skin Skin exam: Present warm, dry, intact and normal color Lymphatic Lymphatic Findings: no adenopathy Medical Decision Making Medical Records Medical records reviewed: No I reviewed the patient's medical records. Screening: Per USPSTF and CDC recommendations, given the prevalence of disease in our region, it is our hospital?s policy to screen for HIV and viral Hepatitis for all patients aged 18 and over and those with ongoing risk factors. Javi Inquiry Pt receiving controlled substance: No Vital Signs: 07/20/24 08:10 Temperature 98.9 F Temperature Source Oral Pulse Rate [Left Brachial] 65 Respiratory Rate 18 Blood Pressure [Left Arm] 126/81 Blood Pressure Mean [Left Arm] 96 Blood Pressure Source [Left Arm] Automatic Cuff Blood Pressure Position [Left Arm] Sitting 02 Sat by Pulse Oximetry 97 Oxygen Delivery Method Room Air Orders (Tests/Meds): ORDERS Category Date Time Status HIV (1&2) Antibody Rapid Stat Lab 07/20/24 08:38 Ordered Hep C Ab with Reflex to RNA Stat Lab 07/20/24 08:38 Ordered Urinalysis and Microscopic Stat Lab 07/20/24 08:38 Ordered
[2024-07-20 08:54] VITALS: BP 126/81; PULSE 65; RESP 18; TEMP 37.2; O2SAT 97
[2024-07-20 08:54] LABS: Microscopic, Urine URINE MICROSCOPIC (MICROSCOPIC)
[2024-07-20 09:19] LABS: Appearance,Urine CLEAR (Clear); Bilirubin,Urine Negative (Negative); Blood, Urine Negative (Negative); Color,Urine YELLOW (Yellow); Glucose,Urine (UA) Negative (Negative); Ketones,Urine Negative (Negative); Leukocyte Esterase,Urine Negative (Negative); Nitrate,Urine Negative (Negative); Protein,Urine Negative (Negative); Specific Gravity, Urine 1.025 (1.005-1.030); Urobilinogen,Urine 0.2 EU/dl (0.2)
[2024-07-20 09:38] LABS: Bacteria,Urine 1+ /lpf; RBC,Urine Occasional #/hpf (0-3); WBC,Urine Occasional #/hpf (0-3)
[2024-07-20 11:19] LABS: HIV (1&2) Antibody Rapid NONREACTIVE (NONREACTIVE)
[2024-07-21 06:20] LABS: HCV Ab Non Reactive (Non Reactive)
[2024-07-22 06:28] LABS: Neisseria gonorrhoeae, NAA Negative (Negative)
== END 2024-07-20 09:00 | disposition home or self-care (01) ==
LOC: ER 08:03 → UTC 08:07
PROVIDERS: Emergency Provider Nurse Practitioner Family
DX: Z20.2 Contact with and (suspected) exposure to infections with a predominantly sexual mode of transmission (principal)
CPT/HCPCS: 81001; 86803; 87389; 87491; 87591; 99212; G0463